=== PATIENT | female | born 1950 | race Caucasian/White ===

== ENCOUNTER 2018-04-18 10:02 | Inpatient (IN) | payer MEDICARE, OTHER ==
[~2018-04-18] VITALS: Ht 167.6 cm; Wt 79.3 kg
[2018-04-18] MEDS ORDERED: NOREPINEPHRINE 8 MG/250ML KIT 250 ML IV ONE (10:24)
[2018-04-18] MEDS ORDERED: ACETAMINOPHEN 650 mg PER 20 mL UD ONE (10:41)
[2018-04-18] MEDS: MIDAZOLAM DRIP 50 mg/50mL 50 ML IV SCH ×2 (10:41→17:08)
[2018-04-18] MEDS ORDERED: SUCCINYLCHOLINE CHLORIDE 20 MG/ML 10ML VIAL IV ONE (10:45)
[2018-04-18] MEDS ORDERED: VANCOMYCIN 1GM/250ML 250 ML IV ONE (10:45)
[2018-04-18] MEDS ORDERED: PIPERACILLIN-TAZOB 3.375GM 100 ML IV ONE (10:45)
[2018-04-18] MEDS: NOREPINEPHRINE 8 MG/250ML KIT 250 ML IV SCH (10:45)
[2018-04-18] MEDS ORDERED: ETOMIDATE (2MG/ML) 20ML VIAL IV ONE (10:45)
[2018-04-18] MEDS ORDERED: ACETAMINOPHEN 650 mg PER 20 mL UD PO ONE (11:00)
[2018-04-18 11:12] LABS: Basophils # (auto) 0.1 uL; Basophils % (auto) 0.4 % (0.0-2.0); Eosinophils # (auto) 0 uL; Eosinophils % (auto) 0.1 % (0.0-7.0); Hematocrit 50.1 % (36.0-46.0); Hemoglobin 15.7 g/dL (12.2-16.2); Lymphocytes # (auto) 0.9 uL; Mean Corpuscular Hemoglobin 29.8 pg (28.0-32.0); Mean Corpuscular Hgb Conc. 31.4 g/dL (32.0-36.0); Mean Corpuscular Volume 94.9 fL (80.0-100.0); Monocytes # (auto) 1.2 uL; Monocytes % (auto) 6.4 % (0.0-12.0); Neutrophils # (auto) 15.9 uL; Neutrophils % (auto) 88.1 % (37.0-80.0); Nucleated Red Blood Cells % 0.1 %; Platelet Count (auto) 171 10^3/uL (140-450); Red Blood Cells 5.29 10^6/uL (4.0-5.20); Red Cell Distribution Width 15.3 % (11.8-14.3); White Blood Cell 18.1 10^3/uL (4.4-10.8)
[2018-04-18 11:21] LABS: Albumin 2.8 g/dL (3.4-5.0); Calcium 8.4 mg/dL (8.5-10.1); Potassium 5.1 mmol/L (3.5-5.1)
[2018-04-18 11:24] LABS: Lactic Acid w/Reflex 2.6 mmol/L (0.4-2.0)
[2018-04-18 11:25] LABS: BUN/Creatinine Ratio 34.8; Bilirubin, Total 0.6 mg/dL (0.2-1.0); Total Protein 7.1 g/dL (6.4-8.2)
[2018-04-18 12:07] LABS: Urine Bacteria NONE SEEN /hpf (None Seen); Urine Blood Negative /uL (Negative); Urine Hyaline Cast FEW /lpf (0 - 2); Urine Specific Gravity 1.019 (1.001-1.035); Urine WBC 1 /hpf (0 - 5)
[2018-04-18] MEDS ORDERED: PANTOPRAZOLE 40 MG/10 ML VIAL IV ONE ×2 (14:00→14:30)
[2018-04-18] MEDS ORDERED: PROMETHAZINE HCL 25 MG/ML 1ML IV PRN (14:00)
[2018-04-18] MEDS ORDERED: ALBUTEROL SULF 2.5 MG/0.5ML(0.5%) NEB SOLN NEB PRN (14:00)
[2018-04-18] MEDS ORDERED: NITROGLYCERIN 0.4 MG SL TAB SL PRN (14:00)
[2018-04-18] MEDS ORDERED: CLINDAMYCIN 900MG IV 50 ML IV ONE (14:00)
[2018-04-18] MEDS ORDERED: DEXTROSE (50%) 50ML SYRG IV PRN (14:00)
[2018-04-18] MEDS ORDERED: SODIUM CHLORIDE 0.9% 2,000 ML IV ONE (14:00)
[2018-04-18] MEDS ORDERED: LEVOFLOXACIN 500MG 100 ML IV ONE (14:00)
[2018-04-18] MEDS ORDERED: SODIUM CHLORIDE 0.9% 1,000 ML IV SCH (14:00)
[2018-04-18] MEDS: CLINDAMYCIN 600MG IV 50 ML IV SCH ×2 (14:00→22:19)
[2018-04-18] MEDS ORDERED: OSELTAMIVIR 75MG/5ML ORAL SUSP GT ONE (14:00)
[2018-04-18] MEDS ORDERED: LORazepam 2MG/ML-1ML VIAL IV PRN (14:00)
[2018-04-18] MEDS ORDERED: LACTULOSE 20Gm/30ML SOLN PO PRN (14:00)
[2018-04-18] MEDS ORDERED: MORPHINE SULFATE 4 MG/ML SYR/VIAL IV PRN ×3 (14:00)
[2018-04-18] MEDS ORDERED: SOD CHL 0.45% 1,000 ML IV SCH (14:15)
[2018-04-18] MEDS ORDERED: ENOXAPARIN SOD 30 MG/0.3 ML SYRINGE SC ONE (14:30)
[2018-04-18] MEDS ORDERED: OSELTAMIVIR 75 MG CAP PO ONE (15:04)
[2018-04-18] MEDS: SOD CHL 0.45% 1,000 ML IV SCH (16:03)
[2018-04-18 16:06] LABS: CRP High Sensitivity 7.39 mg/dL (< 0.3)
[2018-04-18] MEDS: InsuLIN REG 1unit/0.01ml Soln (100units/ml) SC SCH ×2 (16:41→20:20)
[2018-04-18] MEDS: ACCU-CHEK COMFORT CURVE STRIP VI SCH ×2 (16:41→20:00)
[2018-04-18 18:00] VITALS: BP 91/66
[2018-04-18] MEDS: ALBUTEROL SULF 2.5 MG/0.5ML(0.5%) NEB SOLN NEB SCH (18:10)
[2018-04-18 19:51] LABS: BUN/Creatinine Ratio 34.8; Calcium 7.3 mg/dL (8.5-10.1); Potassium 4.6 mmol/L (3.5-5.1)
[2018-04-18 20:00] VITALS: BP 95/68
[2018-04-18 22:00] VITALS: BP 96/61
[2018-04-18] MEDS ORDERED: OSELTAMIVIR 30 MG CAP PO SCH (22:00)
[2018-04-18] MEDS ORDERED: OSELTAMIVIR 75MG/5ML ORAL SUSP GT SCH ×2 (22:00)
[2018-04-19] VITALS (13 sets, daily range): BP systolic 91–119; BP diastolic 53–77
[2018-04-19] MEDS: ACCU-CHEK COMFORT CURVE STRIP VI SCH ×6 (00:23→20:20)
[2018-04-19] MEDS: InsuLIN REG 1unit/0.01ml Soln (100units/ml) SC SCH ×6 (00:24→20:20)
[2018-04-19] MEDS: ALBUTEROL SULF 2.5 MG/0.5ML(0.5%) NEB SOLN NEB SCH ×4 (00:34→18:04)
[2018-04-19] MEDS: SOD CHL 0.45% 1,000 ML IV SCH ×2 (02:00→09:50)
[2018-04-19] MEDS: CLINDAMYCIN 600MG IV 50 ML IV SCH (06:00)
[2018-04-19 06:57] LABS: Basophils # (auto) 0 uL; Basophils % (auto) 0.2 % (0.0-2.0); Eosinophils # (auto) 0 uL; Eosinophils % (auto) 0.2 % (0.0-7.0); Hematocrit 39.7 % (36.0-46.0); Hemoglobin 12.6 g/dL (12.2-16.2); Lymphocytes % (auto) 8.4 % (10.0-50.0); Mean Corpuscular Hemoglobin 30.2 pg (28.0-32.0); Mean Corpuscular Hgb Conc. 31.8 g/dL (32.0-36.0); Mean Corpuscular Volume 94.9 fL (80.0-100.0); Monocytes # (auto) 0.7 uL; Monocytes % (auto) 6.1 % (0.0-12.0); Neutrophils # (auto) 10.3 uL; Neutrophils % (auto) 85.1 % (37.0-80.0); Nucleated Red Blood Cells % 0.1 %; Platelet Count (auto) 112 10^3/uL (140-450); Red Blood Cells 4.18 10^6/uL (4.0-5.20); Red Cell Distribution Width 14.7 % (11.8-14.3); White Blood Cell 12.1 10^3/uL (4.4-10.8)
[2018-04-19 07:05] LABS: Calcium 7.5 mg/dL (8.5-10.1); Potassium 4.6 mmol/L (3.5-5.1)
[2018-04-19 07:11] LABS: BUN/Creatinine Ratio 34.5; Bilirubin, Total 0.4 mg/dL (0.2-1.0); Total Protein 5.5 g/dL (6.4-8.2)
[2018-04-19] MEDS: MIDAZOLAM DRIP 50 mg/50mL 50 ML IV SCH ×3 (07:12→17:37)
[2018-04-19] MEDS: ENOXAPARIN SOD 30 MG/0.3 ML SYRINGE SC SCH (09:51)
[2018-04-19] MEDS: PANTOPRAZOLE 40 MG/10 ML VIAL IV SCH (09:51)
[2018-04-19] MEDS ORDERED: LEVOFLOXACIN 250MG 50 ML IV SCH (10:00)
[2018-04-19] MEDS: VANCOMYCIN 1GM/250ML 250 ML IV ONE ×2 (11:00→11:50)
[2018-04-19] MEDS ORDERED: VANCOMYCIN PER PHARMACY 0 MG IV SCH (11:45)
[2018-04-19] MEDS ORDERED: D5W 5% 1,000 ML IV SCH (11:45)
[2018-04-19] MEDS: PIPERACILLIN-TAZOB 2.25GM 50 ML IV SCH ×2 (12:34→17:37)
[2018-04-19 12:53] LABS: BUN/Creatinine Ratio 34.4; Calcium 7.3 mg/dL (8.5-10.1); Potassium 4.6 mmol/L (3.5-5.1)
[2018-04-19] MEDS: NOREPINEPHRINE 8 MG/250ML KIT 250 ML IV SCH (20:11)
[2018-04-19 20:29] LABS: BUN/Creatinine Ratio 31.1; Potassium 4.2 mmol/L (3.5-5.1)
[2018-04-20] VITALS (85 sets, daily range): BP systolic 97–129; BP diastolic 46–81
[2018-04-20] MEDS: ALBUTEROL SULF 2.5 MG/0.5ML(0.5%) NEB SOLN NEB SCH ×5 (00:06→23:46)
[2018-04-20] MEDS: ACCU-CHEK COMFORT CURVE STRIP VI SCH ×6 (00:18→20:00)
[2018-04-20] MEDS: InsuLIN REG 1unit/0.01ml Soln (100units/ml) SC SCH ×6 (00:18→20:00)
[2018-04-20] MEDS: PIPERACILLIN-TAZOB 2.25GM 50 ML IV SCH ×4 (00:19→18:49)
[2018-04-20 05:38] LABS: Basophils # (auto) 0 uL; Basophils % (auto) 0.1 % (0.0-2.0); Eosinophils # (auto) 0 uL; Eosinophils % (auto) 0.2 % (0.0-7.0); Hematocrit 34.1 % (36.0-46.0); Lymphocytes # (auto) 1.2 uL; Mean Corpuscular Hemoglobin 30.1 pg (28.0-32.0); Mean Corpuscular Hgb Conc. 32.1 g/dL (32.0-36.0); Mean Corpuscular Volume 93.8 fL (80.0-100.0); Monocytes # (auto) 0.7 uL; Monocytes % (auto) 6.3 % (0.0-12.0); Neutrophils # (auto) 9.7 uL; Neutrophils % (auto) 83.4 % (37.0-80.0); Platelet Count (auto) 105 10^3/uL (140-450); Red Blood Cells 3.63 10^6/uL (4.0-5.20); Red Cell Distribution Width 14.3 % (11.8-14.3); White Blood Cell 11.6 10^3/uL (4.4-10.8)
[2018-04-20 05:46] LABS: BUN/Creatinine Ratio 28.7; Calcium 6.8 mg/dL (8.5-10.1); Magnesium 2.9 mg/dL (1.6-2.6); Potassium 4.1 mmol/L (3.5-5.1)
[2018-04-20 06:07] LABS: Uric Acid 4.9 mg/dL (2.6-6.0)
--- NOTE | 2018-04-20 07:30 | NUR ---
REPORT REPORT RECEIVED FROM OMERO RNEVANGELINA. PT RESTING IN BED, WITH EYES CLOSED, ON THE VENTILATOR AND SEDATED ON VERSED. VSS. CONTINUE TO MONITOR.
--- NOTE | 2018-04-20 07:55 | NUR ---
ASSESSMENT PT IN BED WITH EYES CLOSED. WITHDRAWS TO PAINFUL STIMULI. PUPILS 3 AND BRISK. NO SPONTANEOUS MOVEMENT NOTED. SEDTED ON VERSED AT 10 MG/HR. ON THE VENTILATOR WITH 8 FR ETT/24 AT THE LIP, TV 500, AC 16, 35% FIO2 AND PEEP OF 5. LUNGS CLEAR ANTERIOR AND LATERAL, AND WITH EXPIRATORY CRACKLES POSTERIOR BILATERAL BASES. 02 SAT OF 100%. TELE SR 78, NO ECTOPY. PALPABLE PULSES TO ALL EXTREMITIES. MILD EDEMA NOTED TO BOTH ANKLES. APPLIED SCDS TO BLE. OGT WITH + PLACEMENT AND NO RESIDUAL NOTED. ADMINISTERED ORDERED 400ML FREE WATER PER MD ORDER. ABD SOFT WITH ACTIVE BOWEL SOUNDS. INCONTINENT OF MODERATE AMOUNT OF SOFT FORMED BROWN BM. PERICARE GIVEN AND CAIR PAD CHANGED. Z GUARD CREAM APPLIED. OPTIFOAM IN PLACE TO SACRUM, SKIN UNDER IS CLEAR. NOTED WITH BLANCHABLE RED AREA TO LEFT HIP AND BLANCHABLE RED TO BOTH HEELS. HEELS OFFLOADED ON PILLOWS. GARCIA CATHETER DRAINING CLEAR YELLOW URINE. TURNED TO HER LEFT SIDE. RAILS UP AND BED IN LOW POSITION FOR PT SAFETY. CONTINUE TO MONITOR.
--- NOTE | 2018-04-20 07:55 | NUR ---
PT TEACHING PT UNABLE TO BENEFIT FROM PT TEACHING DUE TO CONDITION AND SEDATED WHILE ON THE VENTILATOR. Addendum: 04/20/18 at 0937 by Claudia Oscar RN Amended: Links added.
[2018-04-20] MEDS: ENOXAPARIN SOD 30 MG/0.3 ML SYRINGE SC SCH (09:54)
[2018-04-20] MEDS: PANTOPRAZOLE 40 MG/10 ML VIAL IV SCH (09:54)
[2018-04-20] MEDS: MIDAZOLAM DRIP 50 mg/50mL 50 ML IV SCH (09:54)
[2018-04-20] MEDS ORDERED: VANCOMYCIN 1GM/250ML 250 ML IV ONE (10:00)
[2018-04-20] MEDS: NOREPINEPHRINE 8 MG/250ML KIT 250 ML IV SCH (10:01)
--- NOTE | 2018-04-20 10:11 | NUR ---
RADIOLOGIST RECEIVED A CALL FROM DR MELGOZA, RADIOLOGIST, THAT ETT NEEDS TO BE RETRACTED BY 2.5 CM. PAGED AND SPOKE WITH RT KALYAN, AND MADE HIMAWARE..
--- NOTE | 2018-04-20 10:32 | NUR ---
MD VISIT PT SEEN BY DR SIMS. MADE AWARE OF PT'S CURRENT CONDITION, NO FAMILY IN YET AND RADIOLOGIST RECOMMENDATION TO RETRACT ETT 2.5CM. SHE WILL ORDER FOR CPAP TRIAL FOR TOMORROW .
[2018-04-20] MEDS: SOD CHL 0.45% 1,000 ML IV SCH (12:31)
[2018-04-20] MEDS: FREE WATER GT SCH (18:00)
--- NOTE | 2018-04-20 18:00 | NUR ---
DID NOT ADMINISTER 1800 DOSE OF 400ML FREE WATER I GAVE FIRST DOSE AT 0900 AND SECOND DOSE AT 1500. WILL ADMINISTER NEXT DOSE AT 0000. TURNED FOR COMFORT AND NO DISTRESS NOTED.
--- NOTE | 2018-04-20 18:54 | NUR ---
RESPIRATORY PER ORDER FROM DR Evan CABRERA, PT TO NOT HAVE 0400 ABG, START ON SIMV AT 0600, ABG AT 0800, TITRATE OFF SEDATION BY 1000 AND IF TOLERATED WELL BY PT, CPAP AT 1200 WITH WEANING PARAMETERS AND ABG TO FOLLOW.
--- NOTE | 2018-04-20 19:15 | NUR ---
REPORT GIVEN TO EVANGELINA JAMIL RN.
[2018-04-20] MEDS ORDERED: AML5T PO (21:08)
[2018-04-20] MEDS ORDERED: MET50T PO (21:10)
[2018-04-20] MEDS ORDERED: TRAZ-220 PO (21:13)
[2018-04-20] MEDS ORDERED: LEVO25TA6 PO (21:17)
[2018-04-20] MEDS ORDERED: ACET5SOL5 PO (21:19)
[2018-04-20] MEDS ORDERED: GLIP-115 PO (21:21)
[2018-04-20] MEDS ORDERED: BENZ0.5T14 PO (21:25)
[2018-04-20] MEDS ORDERED: BEN2I PO (21:25)
[2018-04-21] VITALS (96 sets, daily range): BP systolic 93–142; BP diastolic 44–90
[2018-04-21 03:53] LABS: Basophils # (auto) 0 uL; Basophils % (auto) 0.1 % (0.0-2.0); Eosinophils # (auto) 0.1 uL; Eosinophils % (auto) 0.6 % (0.0-7.0); Hematocrit 31.7 % (36.0-46.0); Hemoglobin 10.4 g/dL (12.2-16.2); Lymphocytes # (auto) 1.3 uL; Lymphocytes % (auto) 12.3 % (10.0-50.0); Mean Corpuscular Hemoglobin 30.5 pg (28.0-32.0); Mean Corpuscular Volume 92.5 fL (80.0-100.0); Monocytes # (auto) 0.6 uL; Monocytes % (auto) 5.8 % (0.0-12.0); Neutrophils # (auto) 8.3 uL; Neutrophils % (auto) 81.2 % (37.0-80.0); Platelet Count (auto) 102 10^3/uL (140-450); Red Blood Cells 3.42 10^6/uL (4.0-5.20); Red Cell Distribution Width 14.3 % (11.8-14.3); White Blood Cell 10.2 10^3/uL (4.4-10.8)
[2018-04-21] MEDS: ACCU-CHEK COMFORT CURVE STRIP VI SCH ×6 (04:00→20:20)
[2018-04-21] MEDS: InsuLIN REG 1unit/0.01ml Soln (100units/ml) SC SCH ×6 (04:00→20:00)
[2018-04-21 05:26] LABS: Calcium 7.1 mg/dL (8.5-10.1); Potassium 4.1 mmol/L (3.5-5.1)
[2018-04-21] MEDS: ALBUTEROL SULF 2.5 MG/0.5ML(0.5%) NEB SOLN NEB SCH ×3 (05:33→19:01)
[2018-04-21] MEDS: FREE WATER GT SCH ×4 (05:57→18:12)
[2018-04-21] MEDS: PIPERACILLIN-TAZOB 2.25GM 50 ML IV SCH ×4 (05:57→18:12)
--- NOTE | 2018-04-21 06:43 | NUR ---
Respiratory note: PT PLACED ON SIMV 12, 500, PEEP OF 5, PRESSURE SUPPORT OF 8, 30% FIO2. HR 69, RR 12, SPO2 100%, BP 118/59. PATIENT SEEMS TO BE TOLERATING WELL. ALIRIO RICKS.
--- NOTE | 2018-04-21 07:15 | NUR ---
REPORT RECEIVED FROM OMERO RNEVANGELINA.
[2018-04-21] MEDS: SOD CHL 0.45% 1,000 ML IV SCH ×2 (07:45→13:09)
--- NOTE | 2018-04-21 07:54 | NUR ---
ASSESSMENT PT RESTING WITH EYES CLOSED SLIGHT COUGH, NO GAG, AND NO WITHDRAWL TO PAINFUL STIMULI. SEDATED ON VERSED 2 MG/HR WHILE ON THE VENTILATOR. 8 FR ETT/22 AT THE LIP, SIMV RATE OD 12, TV 500, 30% , PEEP OFF 5 AND PRESSURE SUPPORT OF 8. LUNGS CLEAR THROUGHOUT AND A FEW INSPIRATORY CRACKLES AT THE BASES. O2 SAT OF 100%. TELE SR 70. SCDS TO BLE. PALPABLE PULSES TO ALL EXTREMITIES. ABD SOFT WITH HYPOACTIVE BOWEL SOUNDS. UNKNOWN LAST BM . GARCIA CATHETER DRAINING CLEAR YELLOW URINE. LEFT HIP, BLANCHABLE LIGHT RED. SACRUM CLEAR. 3 SMALL SCABS NOTED AT BASE OF RIGHT TOE #5. TURNED FOR COMFORT TO HER LEFT SIDE. RAILS UP AND BED IN LOW POSITION FOR PT SAFETY.
--- NOTE | 2018-04-21 09:10 | NUR ---
RESPIRATORY/ABG ABG DRAWN AFTER 2 HOURS ON SIMV. NO SIGNIFICANT CHANGE FROM PREVIOUS ABG ON AC MODE. PER DR Evan CABRERA'S ORDER, TO TURN OFF REMAINING SEDATION AT 1000.
--- NOTE | 2018-04-21 10:00 | NUR ---
LAST OF VERSED TURNED OFF IN PREP FOR CPAP.
[2018-04-21] MEDS: PANTOPRAZOLE 40 MG/10 ML VIAL IV SCH (10:05)
[2018-04-21] MEDS: VANCOMYCIN 1GM/250ML 250 ML IV SCH (10:05)
[2018-04-21] MEDS: ENOXAPARIN SOD 40 MG/0.4 ML SYRINGE SC SCH (10:05)
[2018-04-21] MEDS: MIDAZOLAM DRIP 50 mg/50mL 50 ML IV SCH (10:32)
[2018-04-21] MEDS ORDERED: FUROSEMIDE 20 MG/2 ML VIAL IV ONE (11:00)
--- NOTE | 2018-04-21 11:22 | NUR ---
NUTRITION ASSESSMENT NOTES Please refer to link notes of nutrition screen form filed under the intervention section of the plan of care for further details. Est. Needs: 1550 kcal to 1900 kcal (20-25 kcal/kgBW), 61 gms to 77 gms pro (0.8-1.0 gms/kgBW). Will continue to monitor pertinent labs and reassess nutrient need prn Thank you. Addendum: 04/21/18 at [address] Amended: Links added.
--- NOTE | 2018-04-21 12:05 | NUR ---
MD DR Evan CABRERA HERE AND MADE AWARE OF ABG RESULTS WITH PT ON SIMV AND THAT SEDATION OFF SINCE 1000 BUT PT REMAINS ASLEEP. DOES COUGH NOW WHEN SUCTIONED BUT NO SPONTANEOUS MOVEMENT OR EYE OPENING NOTED. WILL HOLD OFF ON CPAP UNTIL PT AWAKE AND ABLE TO FOLLOW SIMPLE COMMANDS.
--- NOTE | 2018-04-21 14:30 | NUR ---
PT STILL NOT WAKING UP.
--- NOTE | 2018-04-21 17:27 | NUR ---
[facility] [phone] [id number] [place] [address] PCP: DR RILEY Addendum: 04/21/18 at 1737 by Claudia Oscar RN ATTEMPTED TO CONTACT [facility] BLEDSOE AND [facility] AT THE ABOVE NUMBER TO GET BACKGROUND INFO AND NEXT OF KIN CONTACT. NO ANSWER AND LEFT A MESSAGE REQUESTING THAT THEY CALL BACK.
--- NOTE | 2018-04-21 18:00 | NUR ---
REPOSITIONED PT ONTO HER BACK. OGT IN PLACE WITH NO RESIDUAL AND ADMINISTERED 400 ML FREE WATER PER MD ORDER. CONTINUE TO MONITOR.
--- NOTE | 2018-04-21 19:10 | NUR ---
INFO FROM [employer] SPOKE WITH MOR FROM [facility] [employer]. HE STATED THAT PT CAME TO THEIR FACILITY FROM [facility] ON 04/11 AND THAT SHE HAS NO EMERGENCY CONTACT INFO AND WAS NON VERBAL. PER THE [facility], SHE HAD RECENTLY BEEN LIVING WITH A ROOM MATE BUT NO CONTACT INFO WAS GIVEN.
--- NOTE | 2018-04-21 19:59 | NUR ---
REPORT GIVEN TO CARLIN JAMIL RN.
[2018-04-21] MEDS: Glucerna 1.2 Cal 1Liter BOTTLE GT SCH (21:30)
[2018-04-22] VITALS (91 sets, daily range): BP systolic 94–131; BP diastolic 45–63
[2018-04-22] MEDS: PIPERACILLIN-TAZOB 2.25GM 50 ML IV SCH ×4 (00:17→18:28)
[2018-04-22] MEDS: FREE WATER GT SCH ×4 (00:18→18:27)
[2018-04-22] MEDS: InsuLIN REG 1unit/0.01ml Soln (100units/ml) SC SCH ×6 (00:21→20:00)
[2018-04-22] MEDS: ACCU-CHEK COMFORT CURVE STRIP VI SCH ×6 (00:21→20:00)
[2018-04-22] MEDS: ALBUTEROL SULF 2.5 MG/0.5ML(0.5%) NEB SOLN NEB SCH ×4 (00:25→18:59)
[2018-04-22 03:50] LABS: Basophils # (auto) 0 uL; Basophils % (auto) 0.1 % (0.0-2.0); Eosinophils # (auto) 0.1 uL; Eosinophils % (auto) 1.3 % (0.0-7.0); Hematocrit 31.1 % (36.0-46.0); Hemoglobin 10.2 g/dL (12.2-16.2); Lymphocytes # (auto) 0.9 uL; Lymphocytes % (auto) 9.5 % (10.0-50.0); Mean Corpuscular Hemoglobin 30.1 pg (28.0-32.0); Mean Corpuscular Hgb Conc. 32.8 g/dL (32.0-36.0); Mean Corpuscular Volume 91.7 fL (80.0-100.0); Monocytes # (auto) 0.6 uL; Monocytes % (auto) 5.9 % (0.0-12.0); Neutrophils # (auto) 7.9 uL; Neutrophils % (auto) 83.2 % (37.0-80.0); Platelet Count (auto) 104 10^3/uL (140-450); Red Blood Cells 3.39 10^6/uL (4.0-5.20); Red Cell Distribution Width 13.8 % (11.8-14.3); White Blood Cell 9.5 10^3/uL (4.4-10.8)
[2018-04-22 04:11] LABS: Albumin 1.5 g/dL (3.4-5.0); BUN/Creatinine Ratio 22.3
[2018-04-22 04:14] LABS: Bilirubin, Total 0.6 mg/dL (0.2-1.0); Total Protein 5.3 g/dL (6.4-8.2)
--- NOTE | 2018-04-22 05:15 | NUR ---
Patient bathe/linen change Patient given complete bath. Skin integrity assessed for any changes. Linens changed. Patient repositioned for comfort.
[2018-04-22] MEDS: MIDAZOLAM DRIP 50 mg/50mL 50 ML IV SCH (10:32)
[2018-04-22] MEDS: VANCOMYCIN 1GM/250ML 250 ML IV SCH (10:50)
[2018-04-22] MEDS: ENOXAPARIN SOD 40 MG/0.4 ML SYRINGE SC SCH (10:51)
[2018-04-22] MEDS: PANTOPRAZOLE 40 MG/10 ML VIAL IV SCH (10:51)
[2018-04-22] MEDS ORDERED: FUROSEMIDE 20 MG/2 ML VIAL IV ONE (11:15)
[2018-04-22] MEDS ORDERED: LEVOFLOXACIN 750MG 150 ML IV ONE (11:45)
[2018-04-22] MEDS: SOD CHL 0.45% 1,000 ML IV SCH (14:43)
--- NOTE | 2018-04-22 19:30 | NUR ---
OPEN Report received from day shift RN. Received pt on mechanical ventilator all sedation turned off. Pt does not respond to stimuli. does not open eyes spontaneously. Pupils 3 brisk bilaterally. Right IJ TLC asymptomatic and patent. Sinus rhythm on bedside monitor in the 70's. all pulses palpable. OGT placement verified. Assessment complete see interventions. Optifoam to sacrum for preventative measures. Pt turned and repositioned for comfort. Car catheter draining to gravity yellow urine with sediment. Pt in full view of RN. All alarms on and audible.
--- NOTE | 2018-04-22 19:30 | NUR ---
Respiratory note: RECEIVED PT FROM DAY SHIFT RT ON SETTINGS PASSED ON REPORT. PT VENT(V14) ALARMS VERIFIED AND AUDIBLE, VENT PLUGGED IN TO RED OUTLET, AMBU BAG BEDSIDE.PT INTUBATED WITH 8.0 ETT SECURED AT 22CM LIP LINE MARKER WITH DIDI. PT ETT MOVED TO THE LEFT CUFF PRESSURE CHECKED AT [id number]. PT SKIN IS WARM AND DRY TO THE TOUCH WITH NO EDEMA NOTED ON EXTREMITIES. PT BS COURSE BILATERALLY. PT WAS INLINE SUCTIONED PRODUCING MODERATE THICK YELLOW SECRETIONS. PT RECEIVED MED iTaggit TX AT 1859 PT TOLERATED TX WELL. PT REMAINS STABLE AT THIS TIME WILL CONTINUE TO MONITOR PT ORDERED.PT VENT SETTINGS CHANGED PER DR. CABRERA TO AC//30% TRIED TO CONTACT DR. CABRERA FOR ORDER CLARIFICATION AT AROUND 1915 NO ANSWER UNABLE TO LEAVE MESSAGE ALIRIO ROBERT NOTIFIED,
--- NOTE | 2018-04-22 21:10 | NUR ---
Tube Feeding TF glucerna, turned on at this time at 20cc's.
[2018-04-23] VITALS (94 sets, daily range): BP systolic 108–165; BP diastolic 45–115
--- NOTE | 2018-04-23 | NUR ---
Residuals Residuals at 50 mls. TF off at this time.
[2018-04-23] MEDS: ACCU-CHEK COMFORT CURVE STRIP VI SCH ×6 (00:26→17:50)
[2018-04-23] MEDS: PIPERACILLIN-TAZOB 2.25GM 50 ML IV SCH ×4 (00:32→18:12)
[2018-04-23] MEDS: FREE WATER GT SCH ×4 (00:32→17:49)
[2018-04-23] MEDS: ALBUTEROL SULF 2.5 MG/0.5ML(0.5%) NEB SOLN NEB SCH ×4 (00:39→18:38)
[2018-04-23 04:00] LABS: Basophils # (auto) 0 uL; Basophils % (auto) 0.1 % (0.0-2.0); Eosinophils # (auto) 0.2 uL; Eosinophils % (auto) 1.8 % (0.0-7.0); Hematocrit 30.7 % (36.0-46.0); Hemoglobin 10.2 g/dL (12.2-16.2); Lymphocytes # (auto) 0.9 uL; Lymphocytes % (auto) 10.9 % (10.0-50.0); Mean Corpuscular Hemoglobin 30.6 pg (28.0-32.0); Mean Corpuscular Hgb Conc. 33.1 g/dL (32.0-36.0); Mean Corpuscular Volume 92.5 fL (80.0-100.0); Monocytes # (auto) 0.6 uL; Neutrophils # (auto) 6.9 uL; Neutrophils % (auto) 80.2 % (37.0-80.0); Platelet Count (auto) 129 10^3/uL (140-450); Red Blood Cells 3.32 10^6/uL (4.0-5.20); White Blood Cell 8.6 10^3/uL (4.4-10.8)
[2018-04-23] MEDS: InsuLIN REG 1unit/0.01ml Soln (100units/ml) SC SCH ×6 (04:00→17:50)
[2018-04-23 04:21] LABS: Calcium 7.6 mg/dL (8.5-10.1); Potassium 3.8 mmol/L (3.5-5.1)
[2018-04-23 04:24] LABS: Albumin 1.4 g/dL (3.4-5.0); BUN/Creatinine Ratio 22.5; Magnesium 2.4 mg/dL (1.6-2.6)
[2018-04-23 04:27] LABS: Bilirubin, Total 0.6 mg/dL (0.2-1.0); Total Protein 5.4 g/dL (6.4-8.2)
--- NOTE | 2018-04-23 05:00 | NUR ---
Patient bathe/linen change Patient given complete CHG bath. Skin integrity assessed for any changes. Linens changed. Patient repositioned for comfort.
--- NOTE | 2018-04-23 05:15 | NUR ---
Pt had moderate liquid brown BM
[2018-04-23] MEDS: SOD CHL 0.45% 1,000 ML IV SCH (06:46)
--- NOTE | 2018-04-23 08:15 | NUR ---
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 PATIENT PLACED ON ISOLATION PER HOSPITAL PROTOCOL. CALL OUT TO DR. ESPAÑA.
--- NOTE | 2018-04-23 08:46 | NUR ---
SEDATION TURNED OFF ON 04/21/18 AND PATIENT IS STILL NOT WAKING UP AT THIS TIME.
[2018-04-23] MEDS: PANTOPRAZOLE 40 MG/10 ML VIAL IV SCH (10:54)
[2018-04-23] MEDS: ENOXAPARIN SOD 40 MG/0.4 ML SYRINGE SC SCH (10:55)
--- NOTE | 2018-04-23 11:30 | NUR ---
Nutrition Follow-up Notes Wt.: 76.7 kg Pt was intubated off sedation per RN with no family by bedside. per RN feeds turned off due to high residual. pt was on EN support with Glucerna @ 20 ml/hr providing 576 kcals and 28 gm proteins. Est. Needs: 1550 kcal to 1900 kcal (20-25 kcal/kgBW), 61 gms to 77 gms pro (0.8-1.0 gms/kgBW). Will continue to monitor pertinent labs and reassess nutrient need prn Labs: BUN 29 H, CREAT 1.29 H, CA 7.6 L, ALB 1.4 L, GLU 147 H Skin: Taz scale 12, high risk, redness on hip per RN doc GI: Pt had 2 BM today per medical manager. PES: Increased nutrient needs r/t current chronic medical condition aeb intubated, sedated, NPO. Altered nutrition related lab values r/t current/chronic medical condition aeb hyperglycemia, hyponatremia, hyperchloremia, elev. renal labs, HbA1c, hypocalcemia Will continue to monitor NPO status, skin status, pertinent labs and weight trend. F/u in 2-3 days. Rec.: 1.) Resume EN support with Glucerna 1.2 J Carlos @ 60 ml/hr goal rate as tolerated. 3.) Advance gradually to oral diet when medically appropriate. 4.) Refer to CDE/RD for further nutrition education and weight monitoring upon discharged. 5.) Continue current plan of care.
[2018-04-23] MEDS ORDERED: VANCOMYCIN 1GM/250ML 250 ML IV ONE (16:30)
[2018-04-23] MEDS ORDERED: FUROSEMIDE 20 MG/2 ML VIAL IV ONE (16:30)
[2018-04-23] MEDS: SODIUM CHLORIDE 0.9% 1,000 ML IV SCH (16:35)
--- NOTE | 2018-04-23 19:30 | NUR ---
REPORT RECEIVED FROM DAY SHIFT RN. PT STILL UNRESPONSIVE, SEDATION TURNED OFF ON 04/21. PT ON MECHANICAL VENTILATOR WITH SIMV SETTINGS RATE OF 10, VT 500, PEEP OF 6 AND FIO2 AT 30%.
--- NOTE | 2018-04-23 20:30 | NUR ---
UPON ASSESSMENT, BLISTER LIKE RASH OBSERVED OVER PT'S ABDOMEN, LEFT AND RIGHT FLANK, AND BACK. HOSPITALIST PAGED AT THIS TIME.
[2018-04-23] MEDS ORDERED: diphenhdrAMINE HCL 50 MG/1 ML VL IV ONE (21:45)
[2018-04-23] MEDS ORDERED: methylPREDNISolone SOD SUCC 125 MG/2 ML VL IV ONE (21:45)
--- NOTE | 2018-04-23 21:46 | NUR ---
HOSPITALIST RETURNED CALL. MENTIONED TO HOSPITALIST SHE RECEIVED LEVAQUIN ON DAY SHIFT, WHICH IS A NEW ANTIBIOTIC ORDERED. POSSIBLE ALLERGIC REACTION. ORDERS RECEIVED FOR 125 MG SOLUMEDROL IV AND 25 MG BENADRYL IV. WILL CARRY OUT ORDERS.
[2018-04-24] VITALS (85 sets, daily range): BP systolic 98–175; BP diastolic 55–90
--- NOTE | 2018-04-24 | NUR ---
TF residual at 20 mls.
[2018-04-24] MEDS: ALBUTEROL SULF 2.5 MG/0.5ML(0.5%) NEB SOLN NEB SCH ×4 (00:45→18:23)
[2018-04-24] MEDS: InsuLIN REG 1unit/0.01ml Soln (100units/ml) SC SCH ×4 (00:48→17:43)
[2018-04-24] MEDS: ACCU-CHEK COMFORT CURVE STRIP VI SCH ×4 (00:48→17:43)
[2018-04-24] MEDS: PIPERACILLIN-TAZOB 2.25GM 50 ML IV SCH ×2 (00:48→05:55)
[2018-04-24 04:07] LABS: Albumin 1.5 g/dL (3.4-5.0); Calcium 8.1 mg/dL (8.5-10.1); Potassium 4.1 mmol/L (3.5-5.1)
[2018-04-24 04:11] LABS: BUN/Creatinine Ratio 25.7; Bilirubin, Total 0.5 mg/dL (0.2-1.0); Total Protein 5.8 g/dL (6.4-8.2)
--- NOTE | 2018-04-24 04:45 | NUR ---
Patient bathe/linen change Patient given complete bath. Moderate sized liquid brown BM. Linens changed. Patient repositioned for comfort.
[2018-04-24] MEDS: FREE WATER GT SCH ×4 (06:22→17:43)
--- NOTE | 2018-04-24 07:00 | NUR ---
Opening Shift Note: Report received from ALIRIO Lanza. Assumed care of patient, opens eyes -does not respond to commands. Off sedation since 04/21/18. Plan for a CT head today. No S/S of distress/SOB or pain. Will continue to monitor for changes Q1hr and PRN. See Px assessment.
--- NOTE | 2018-04-24 07:15 | NUR ---
Patient seen by Dr. Taylor-CT head ordered.
[2018-04-24] MEDS: Glucerna 1.2 Cal 1Liter BOTTLE GT SCH (07:23)
--- NOTE | 2018-04-24 08:00 | NUR ---
Patient having diarrhea loose brown stools- rectal tube inserted.
[2018-04-24] MEDS: SODIUM CHLORIDE 0.9% 1,000 ML IV SCH (08:55)
--- NOTE | 2018-04-24 09:15 | NUR ---
Dr. Chamberlain at bedside- plan to cpap if patient if patient able.
--- NOTE | 2018-04-24 09:30 | NUR ---
Respiratory note: PLACED PATIENT ON TRANSPORT VENTILATOR WITH SETTINGS OF SIMV RR10/VT 500/ +6/PSV 10/ FIO2 30%. ALARMS ARE FUNCTIONING AND AUDIBLE. PATIENT WAS CONNECTED TO PULSE OXIMETER. PATIENT WAS TRANSPORTED TO CT WITHOUT ANY ISSUES. AMBU BAG WAS CONNECTED TO O2 SOURCE.
--- NOTE | 2018-04-24 09:45 | NUR ---
Patient transported to Radiology for CT head- came back VS's WNL.
--- NOTE | 2018-04-24 09:45 | NUR ---
Respiratory note: PATIENT WAS BROUGHT BACK FROM CT AND PLACED ON VENTILATOR V 14 WITHOUT ANY INCIDENTS. PATIENT OCCURS TO BE ON PREVIOUS VENTILATOR SETTINGS OF SIMV 10/ VT 500/ +6/ PSV 10/ 30%. PATIENT IS TOLERATING VENTILATOR SETTINGS WELL. ALIRIO COLEMAN AT BEDSIDE. WILL CONTINUE TO MONITOR PATIENT.
[2018-04-24] MEDS: ENOXAPARIN SOD 40 MG/0.4 ML SYRINGE SC SCH (10:00)
[2018-04-24] MEDS: PANTOPRAZOLE 40 MG/10 ML VIAL IV SCH (10:00)
[2018-04-24] MEDS ORDERED: LEVOFLOXACIN 750MG 150 ML IV SCH (10:00)
[2018-04-24] MEDS ORDERED: PIPERACILLIN-TAZOB 3.375GM 100 ML IV SCH (12:00)
--- NOTE | 2018-04-24 12:10 | NUR ---
WOUND CARE NOTE: IN TO SEE PATIENT AT THIS TIME PER PROTOCOL. PATIENT NOTED TO HAVE LOW AMANDA SCORE OF 12. ADDED PATIENT TO SKIN INTEGRITY MONITORING. PATIENT ADMITTED WITH DIAGNOSIS OF PNA, RESPIRATORY AND RENAL FAILURE. PATIENT REMAINS INTUBATED, SEDATED. SHE IS NOTED TO HAVE MILD INTERTRIGINOUS RASH TO PERINEUM/PERIANAL SKIN. CAVILON NO STING BARRIER FILM APPLIED BY BEDSIDE NURSE. OPTIFOAM GENTLE SACRAL DRESSING APPLIED TO UPPER MEDIAL SACRUM PREVENTATIVE. RECTAL TUBE HAS BEEN APPLIED PER MD ORDER BY BEDSIDE NURSE. PATIENT REPOSITIONED ONTO RIGHT SIDE, REDISTRIBUTING PRESSURE POINTS USING PILLOWS/WEDGES. RECOMMEND: FREQUENT TURN SCHEDULE Q 2 HOURS, PRN CONDITION PERMITS, WITH PRESSURE REDISTRIBUTION USING PILLOWS/WEDGES, BID/PRN APPLICATION WITH CAVILON NO STING BARRIER FILM TO PERINEAL/PERIANAL SKIN, APPLICATION OF OPTIFOAM GENTLE SACRAL DRESSING PREVENTATIVE, SKIN/WOUND CARE PLAN, DIETARY CONSULT FOR LOW AMANDA SCORE OF 12, CONTINUED MONITORING BY WOUND CARE TEAM.
--- NOTE | 2018-04-24 13:05 | NUR ---
Respiratory note: CPAP TRIAL INITIATED. VENTILATOR SETTINGS ARE CPAP +6/PSV 10/30%. PATIENT IS TOLERATING CPAP TRIAL AND IS MAINTAINING SPO2 >92%. RN JARED IS AT BEDSIDE ALONG WITH MYSELF. PATIENT IS ABLE TO OPEN EYES, BUT IS UNABLE TO SQUEEZE HANDS WHEN DIRECTED TO. WILL CONTINUE TO MONITOR PATIENT.
--- NOTE | 2018-04-24 15:15 | NUR ---
Dr. Jasso at bedside- aware of CPAP trial -will check med req.
[2018-04-24] MEDS ORDERED: VANCOMYCIN PER PHARMACY 0 MG IV SCH (15:30)
--- NOTE | 2018-04-24 16:00 | NUR ---
1305pm CPAP trial initation- tolerated well. ABG results obtained by RT. Dr. Bulmaro Kapoor notified and T-piece ordered.
--- NOTE | 2018-04-24 16:05 | NUR ---
Patient on T-piece, 8 liters at 35%.
--- NOTE | 2018-04-24 16:05 | NUR ---
Respiratory note: PLACED PATIENT ON T-PIECE AT 8L AND 35% FIO2. PATIENT IS MAINTAINING SPO2 ABOVE 92%. HR 91, RR 25, SP02 99%, AND BP IS 146/71. PER DR. Trevor CABRERA PLACE PATIENT BACK ON SIMV IF PATIENT STOPS TOLERATING T-PIECE. ALIRIO COLEMAN AWARE AND NOTIFIED.
[2018-04-24] MEDS ORDERED: VANCOMYCIN 1,500 MG in D5W 5% 250 ML IV SCH (17:00)
--- NOTE | 2018-04-24 18:23 | NUR ---
Respiratory note: AT BEDSIDE FOR MED NEB TX. PT CURRENTLY ON T-PIECE TRIAL. MED NEB TX GIVEN INLINE WITHOUT ADVERSE REACTION NOTED. BS ARE FINE COURSE T/O SXD SMALL BEAL. PT HAS 8.0 ETT SECURED AT 22CM AT THE LIP VIA ANCHOR-FAST. VENT V14 ON STANDBY AT BEDSIDE IN CASE PT NOT TOLERATING T-PIECE. RT NAME AND PAGER ASSIGNMENT WRITTEN ON PTS ROOM BOARD.
--- NOTE | 2018-04-24 18:52 | NUR ---
Dr. Fuentes to see patient in the morning.
--- NOTE | 2018-04-24 19:04 | NUR ---
Endorsed care to ALIRIO Spencer.
[2018-04-24] MEDS: PIPERACILLIN-TAZOB 3.375GM 100 ML IV SCH (20:00)
--- NOTE | 2018-04-24 20:04 | NUR ---
Respiratory note: REASSESSED PT AT THIS TIME. PT REMAINS ON T-PIECE. NO S/S OF RESP DISTRESS NOTED. BS ARE FINE COURSE IN BILATERAL BASES. SXD FOR SMALL BEAL/ BLOOD TINGE. HR 89 POX 98% ON 8LPM COOL AEROSOL SET TO DELIVER ABOUT 35% FIO2. BP IS 165/83. WILL CONTINUE TO MONITOR.
--- NOTE | 2018-04-24 22:21 | NUR ---
Respiratory note: AT BEDSIDE PT APPEARS COMFORTABLE. PT OPENS EYES WHEN STIMULATED, SXD FOR SMALL THICK BEAL, GAG REFLEX INTACT, VISUALLY SEEN WHEN SXD VIA ETT. ASKED PT TO SQUEEZE MY HAND PT NOT FOLLOWING COMMANDS AT THIS TIME. SXD
[2018-04-25] VITALS (80 sets, daily range): BP systolic 127–168; BP diastolic 60–85
[2018-04-25] MEDS: ALBUTEROL SULF 2.5 MG/0.5ML(0.5%) NEB SOLN NEB SCH ×4 (00:17→18:23)
--- NOTE | 2018-04-25 00:17 | NUR ---
Respiratory note: AT BEDSIDE FOR MED NEB TX. TX GIVEN INLINE. PT HAS INCREASED HAND MOVEMENT WITH STIMULATION FROM LAST CHECK. NO ADVERSE REACTION NOTED WILL CONTINUE TO MONITOR.
[2018-04-25] MEDS: SODIUM CHLORIDE 0.9% 1,000 ML IV SCH (01:35)
[2018-04-25] MEDS: PIPERACILLIN-TAZOB 3.375GM 100 ML IV SCH ×4 (02:14→19:39)
--- NOTE | 2018-04-25 02:44 | NUR ---
Respiratory note: AT BEDSIDE TO ASSESS PT. PT CURRENTLY STILL ON T-PIECE TRIAL. PT APPEARS COMFORTABLY SLEEPING AT THIS TIME. RR 21, HR 87, BP 139/70, POX 99% ON 8LPM COOL AEROSOL WITH FLOWING FIO2 OF 35%. BS ARE FINE COURSE SXD FOR SCANT BEAL. GAG SEEN WHEN SX VIA ETT. SXD CATHETER CHANGED AT THIS TIME. PT SLIGHTLY MOVES LEFT HAND WITH STIMULATION. WILL CONTINUE TO MONITOR.
[2018-04-25 04:08] LABS: Basophils # (auto) 0 uL; Basophils % (auto) 0.1 % (0.0-2.0); Eosinophils # (auto) 0 uL; Eosinophils % (auto) 0.2 % (0.0-7.0); Hematocrit 32.1 % (36.0-46.0); Hemoglobin 10.7 g/dL (12.2-16.2); Lymphocytes % (auto) 10.3 % (10.0-50.0); Mean Corpuscular Hemoglobin 30.6 pg (28.0-32.0); Mean Corpuscular Hgb Conc. 33.2 g/dL (32.0-36.0); Monocytes # (auto) 0.7 uL; Monocytes % (auto) 7.2 % (0.0-12.0); Neutrophils # (auto) 7.9 uL; Neutrophils % (auto) 82.2 % (37.0-80.0); Nucleated Red Blood Cells % 0.1 %; Platelet Count (auto) 159 10^3/uL (140-450); Red Blood Cells 3.49 10^6/uL (4.0-5.20); Red Cell Distribution Width 13.8 % (11.8-14.3); White Blood Cell 9.6 10^3/uL (4.4-10.8)
[2018-04-25 04:36] LABS: Potassium 3.4 mmol/L (3.5-5.1)
[2018-04-25 04:40] LABS: Albumin 1.5 g/dL (3.4-5.0); BUN/Creatinine Ratio 24.5; Calcium 8.3 mg/dL (8.5-10.1)
[2018-04-25 04:42] LABS: Bilirubin, Total 0.3 mg/dL (0.2-1.0); Total Protein 5.6 g/dL (6.4-8.2)
--- NOTE | 2018-04-25 05:43 | NUR ---
RT NOTE: PT RECEIVED ON 35% COOL AEROSOL VIA T-PIECE WITH ET TUBE SECURED BY DIDI AT 22CM AT THE LIP. NO SIGNS OF BREAKDOWN NOTED. NO SIGNS OF RESPIRATORY DISTRESS NOTED AT THIS TIME. EDEMA NOTED IN BILATERAL UPPER EXTREMITIES. WILL CONTINUE TO MONITOR.
[2018-04-25] MEDS: ACCU-CHEK COMFORT CURVE STRIP VI SCH ×4 (06:00→17:53)
[2018-04-25] MEDS: InsuLIN REG 1unit/0.01ml Soln (100units/ml) SC SCH ×4 (06:00→17:53)
[2018-04-25] MEDS: FREE WATER GT SCH ×4 (06:00→17:54)
--- NOTE | 2018-04-25 07:15 | NUR ---
Opening Shift Note: Report received from ALIRIO Spencer. Assumed care of patient, opens eyes -does not respond to commands. Off sedation since 04/21/18. No S/S of distress/SOB or pain. Will continue to monitor for changes Q1hr and PRN. See Px assessment.
--- NOTE | 2018-04-25 07:34 | NUR ---
Patient seen by Dr. Taylor.
--- NOTE | 2018-04-25 07:44 | NUR ---
RT NOTE: HR: 90. RR: 30. SPO2: 98%. BP: 156/75. NO CHANGES NOTED AT THIS TIME. NO SIGNS OF RESPIRATORY DISTRESS. BS: CLEAR DIMINISH THROUGHOUT. NO SUCTION. WILL CONTINUE TO MONITOR. RT STUDENT: DAVID Moreira
[2018-04-25] MEDS ORDERED: POTASSIUM CHL 20 Meq TABLET PO ONE (09:30)
--- NOTE | 2018-04-25 09:30 | NUR ---
Dr. Jasso seen patient- new orders. lasix, potassium, PRN Hydralazine, Stool for CDiff.
[2018-04-25] MEDS: ENOXAPARIN SOD 40 MG/0.4 ML SYRINGE SC SCH (09:52)
[2018-04-25] MEDS: PANTOPRAZOLE 40 MG/10 ML VIAL IV SCH (09:52)
--- NOTE | 2018-04-25 10:00 | NUR ---
Board and care facility notified- need to know if patient has POA. Waiting to call back.
[2018-04-25] MEDS ORDERED: hydrALAZINE HCL 20 MG/ML VL ONE (10:06)
[2018-04-25] MEDS ORDERED: FUROSEMIDE 40 MG/4 ML VIAL IV ONE (10:45)
--- NOTE | 2018-04-25 10:59 | NUR ---
Stool for CDIFF sent to lab.
[2018-04-25] MEDS ORDERED: SODIUM CHLORIDE 0.9% 1,000 ML IV SCH (11:15)
[2018-04-25] MEDS ORDERED: LINEZOLID 600MG/300ML 300 ML IV ONE (11:15)
[2018-04-25] MEDS ORDERED: METOPROLOL TARTRATE 25 MG TAB PO ONE (11:15)
--- NOTE | 2018-04-25 11:32 | NUR ---
RT NOTE: NO CHANGES NOTED. NO SIGNS OF RESPIRATORY DISTRESS. BS: CLEAR/DIMINISHED THROUGHOUT. SECRETION SMALL AMOUNT OF CREAMY WITH BLOOD TINGED PLUG SUCTIONED. WILL CONTINUE TO MONITOR. RT STUDENT: DAVID Moreira
[2018-04-25] MEDS ORDERED: hydrALAZINE HCL 20 MG/ML VL IV PRN ×2 (12:00)
[2018-04-25] MEDS ORDERED: hydrALAZINE HCL 20 MG/ML VL IV SCH (12:00)
[2018-04-25] MEDS: LEVOFLOXACIN 750MG 150 ML IV SCH (12:00)
[2018-04-25] MEDS: FLUCONAZOLE 200MG/100ML 100 ML IV SCH ×2 (12:00→13:00)
--- NOTE | 2018-04-25 12:02 | NUR ---
Nutrition Follow-up Notes Wt.: 76.0 kg today. Pt's on T-piece, in isolation room, no immediate family by bedside during rounds earlier. Pt's NPO, on EN support with Glucerna 1.2 J Carlos @ 20 ml/hr providing 576 kcal, 28 gms proteins, 386 ml free water, had 30 ml residuals noted by RN this morning. Pt with inadequate EN support d/t low initiation rate delivery of concentrated formula aeb current EN infusion meets 30% to 37% of est caloric needs and 36% to 46% of est protein needs. Est. Needs: 1550 kcal to 1900 kcal (20-25 kcal/kgBW), 61 gms to 77 gms pro (0.8-1.0 gms/kgBW). Will continue to monitor pertinent labs and reassess nutrient need prn Labs: Gluc 161 H, Na 149 H, K 3.4 L, Cl 115 H, BUN 27 H, Cr 1.10 H, Ca 8.3 L, Tpro 5.6 L, Alb 1.5 L Skin: Taz scale 12, high risk, redness on hip per RN doc GI: Pt had 25 ml stool output this morning per icu clerk. PES: Partially resolved: Increased nutrient needs r/t current chronic medical condition aeb intubated, sedated, NPO. Altered nutrition related lab values r/t current/chronic medical condition aeb hyperglycemia, hyponatremia, hyperchloremia, elev. renal labs, HbA1c, hypocalcemia Will continue to monitor NPO status, EN tolerance, skin status, pertinent labs and weight trend. F/u in 2 to 3 days. Rec.: 1.) If still NPO with EN support, consider gradual increase on feeding rate with Glucerna 1.2 J Carlos to60 ml/hr goal rate as tolerated. 2.) If Albumin level continues trending down, consider Prostat 1 pkt BID. 3.) Consider daily MVI with minerals and Asc acid 500 mgs BID. 4.) Advance gradually to oral diet when medically appropriate. 5.) Refer to CDE/RD for further nutrition education and weight monitoring upon discharged. 6.) Continue current plan of care.
--- NOTE | 2018-04-25 12:35 | NUR ---
RT NOTE: NO CHANGES NOTED AT THIS TIME. NO SIGNS OF RESPIRATORY DISTRESS. LUNG SOUNDS CLEAR/DIMINISHED. NO SUCTION. WILL CONTINUE TO MONITOR.
--- NOTE | 2018-04-25 12:45 | NUR ---
Dr Chamberlain at bedside- keep patient on T-piece for another day.
--- NOTE | 2018-04-25 12:45 | NUR ---
Dr. Fuentes at bedside- signed off. Addendum: 04/25/18 at 1628 by Catina Hernandez RN Disregard different patient.
[2018-04-25] MEDS: SOD CHL 0.45% WITH 20MEQ KCL 1,000 ML IV SCH (14:15)
--- NOTE | 2018-04-25 14:30 | NUR ---
RT NOTE: NO SIGNS OF RESPIRATORY DISTRESS NOTED. O2 DECREASED FROM 35% TO 28%. PT IS BEGINNING TO WAKE UP AND FOLLOW COMMANDS. DR HAS ORDERED FOR T-PIECE TO BE LEFT UNTIL TOMORROW. WILL CONTINUE TO MONITOR.
--- NOTE | 2018-04-25 15:45 | NUR ---
NEW GARCIA CATHETER INSERTED- 18FRENCH. SEDIMENT IN 16FRENCH CATHETER -TUBE CLOGGING UP.
--- NOTE | 2018-04-25 15:57 | NUR ---
Dr. Kramer at bedside- new orders. IVF changed.
--- NOTE | 2018-04-25 16:03 | NUR ---
RT NOTE:. NO CHANGES NOTED AT THIS TIME. NO SIGNS OF RESPIRATORY DISTRESS. LUNG SOUNDS ARE CLEAR DIMINISHED T/O NO SUCTION. WILL CONTINUE TO MONITOR.
--- NOTE | 2018-04-25 18:59 | NUR ---
Endorsed care to ALIRIO Lanza.
--- NOTE | 2018-04-25 20:00 | NUR ---
PATIENT ADMITTED ON 04/18/2018 FROM [facility]. SYMPTOMS ALOC, RESPIRATORY DISTRESS, LOW BLOOD PRESSURE, HYPONATREMIA, PNA AND SEPSIS. ALERT. POSSIBLE FOLLOWING SIMPLE COMMANDS WITH ARMS. SHE NIGHT STOCKER BUT DOESN'T LET GO. WITHDRAWS ALL EXTREMITIES. ALL PULSES PALPABLE. EYES ARE OPEN. ORAL CARE DONE. DRY LIPS. MOISTURIZER TO LIPS. ORAL NGT WITH GLUCERNA AT 40CC/HR. RESIDUAL IS 50CC. FLEXASEAL IN PLACE. NEW GARCIA TODAY, GARCIA DRAINING ADEQUATE AMOUNTS OF YELLOW LIQUID WITH SEDIMENT. NOTED RASH ON ABDOMEN. [facility] TLC HAS A CURRENT DRSG AND SHOWS NO REDNESS OR SWELLING. RECEIVING FREE WATER Q 6 HOURS FOR HIGH NA LEVEL. REPOSITIONED TO LEFT SIDE AT 1930. NSR WITHOUT ECTOPY
--- NOTE | 2018-04-25 22:00 | NUR ---
REPOSITIONED TO HER BACK. SUCTIONED CLEAR/BROWN FLECKS FROM HER ETT. ON T PIECE AT 28%. RR 25. O2 SATURATION 100%. ABDOMEN SOFT. FLEXASEAL DRAINING, NO LEAK. GARCIA: ADEQUATE OUTPUT. NSR WITHOUT ECTOPY. ONE PORT ON CENTRAL LINE IS CLOTTED. TUBE FEED : 80CC IN 25CC RESIDUAL.
[2018-04-25] MEDS: LINEZOLID 600MG/300ML 300 ML IV SCH (22:03)
[2018-04-25] MEDS: METOPROLOL TARTRATE 25 MG TAB PO SCH (22:04)
--- NOTE | 2018-04-25 23:34 | NUR ---
PT GIVEN NEB TX. PT REMAINS ON T-PIECE WITH NO RESPIRATORY DISTRESS. 8.0 ETT REMAINS AT 22CM AT THE LIP. ETT MOVED TO THE CENTER. NO BREAKDOWN NOTED. ETS WITHOUT SECRETIONS. Addendum: 04/25/18 at 2337 by SIRI OROZCO, RT NOTE TIME INTENDED FOR 1822.
[2018-04-26] VITALS (57 sets, daily range): BP systolic 102–165; BP diastolic 51–96
[2018-04-26] MEDS: ALBUTEROL SULF 2.5 MG/0.5ML(0.5%) NEB SOLN NEB SCH ×4 (00:12→19:07)
[2018-04-26] MEDS: FREE WATER GT SCH ×5 (00:29→23:59)
[2018-04-26] MEDS: PIPERACILLIN-TAZOB 3.375GM 100 ML IV SCH ×4 (02:00→19:37)
--- NOTE | 2018-04-26 02:00 | NUR ---
CHG BATH. SILICONE LOTION APPLIED. COMPLETE BED LINEN CHANGE. CENTRAL LINE DRESSING CHANGE. TUBE FEEDING OFF SINCE MIDNIGHT. LARGE EMESIS IN BED. FLEXASEAL HAS A GOOD SEAL. SMALL AMOUNT OF LEAKAGE AT RECTAL SITE. FLEXASEAL HAS DRAINED 100CC SO FAR THIS SHIFT.
--- NOTE | 2018-04-26 03:50 | NUR ---
INLINE SUCTION CHANGED.
[2018-04-26 04:42] LABS: Albumin 1.7 g/dL (3.4-5.0); Calcium 8.2 mg/dL (8.5-10.1); Potassium 3.1 mmol/L (3.5-5.1)
[2018-04-26 04:48] LABS: BUN/Creatinine Ratio 22.6; Bilirubin, Total 0.3 mg/dL (0.2-1.0); Phosphorus 2.5 mg/dL (2.5-4.90); Total Protein 5.6 g/dL (6.4-8.2)
[2018-04-26 04:49] LABS: Hemoglobin 11.2 g/dL (12.2-16.2); Mean Corpuscular Hgb Conc. 32.9 g/dL (32.0-36.0); Mean Corpuscular Volume 91.1 fL (80.0-100.0); Platelet Count (auto) 181 10^3/uL (140-450); Red Blood Cells 3.73 10^6/uL (4.0-5.20); Red Cell Distribution Width 13.2 % (11.8-14.3); White Blood Cell 8.3 10^3/uL (4.4-10.8)
[2018-04-26 04:53] LABS: Basophils % (manual) 0 (0.0-2.0); Blast Cells 0; Eosinophils % (manual) 0 (0-7); Myelocytes % 0; Promyelocytes % 0; Reactive Lymphocytes 0
[2018-04-26] MEDS: ACCU-CHEK COMFORT CURVE STRIP VI SCH ×5 (06:02→23:58)
[2018-04-26] MEDS: InsuLIN REG 1unit/0.01ml Soln (100units/ml) SC SCH ×5 (06:02→23:58)
--- NOTE | 2018-04-26 06:26 | NUR ---
Respiratory note:T-PIECE: RECEIVED PATIENT ON T-PIECE 28%/ 5LPM. PATIENT HAS 8.0 ETT AND IS SECURED WITH DIDI AT 20CM MARKING AT THE LIP. DIDI SITE SKIN/LIPS: INTACT NO SIGNS OF BREAKDOWN OR REDNESS NOTED AT THIS TIME, TUBE WAS FOUND ON LEFT SIDE OF MOUTH. RE-ESTABLISH TUBE TO CENTER. INLINE MED NEB TX GIVEN AT THIS TIME WITH NO ADVERSE REACTIONS NOTED. PRE/POST B/S CLEAR/DIMINISHED OLIVER T/O WITH IMPROVE AERATION NOTED UPPER LOBES. SKIN: PATIENT HAS OLIVER EDEMA NOTED IN UPPER EXTREMITIES. NO EDEMA NOTED LOWER EXTREMITIES. MENTATION: AWAKE AND ALERT SQUEEZES HAND AND LIFTING FEET, FOLLOWS COMMANDS. WILL SPEAK TO DAY RN TO PUSH FOR POSSIBLE EXTUBATION, GOOD CANDIDATE, WILL FOLLOW DOCTORS REQUEST AND APPROVAL. PATIENT TOLERATING T-PIECE WELL AT THIS TIME. VENT AT BEDSIDE STANDBY FOR NOW. VENT CONNECTED TO RED OUTLET, AMBU BAG AT BEDSIDE WITH MASK CONNECTED TO 02. VENT ESPRIT V#14. X-RAY SHOWS ESTIMATED 2.3 CM ABOVE DU. WILL CONTINUE TO MONITOR PATIENT. PLAN: EXTUBATED, CONTINUE MED NEB TX'S, SUCTION PRN.
[2018-04-26 06:33] LABS: Band Neutrophils % (manual) 3; Lymphocytes % (manual) 14 (10.0-50.0); Metamyelocytes % 1; Monocytes % (manual) 6 (0-12)
[2018-04-26] MEDS: hydrALAZINE HCL 20 MG/ML VL IV PRN ×2 (06:50→21:38)
[2018-04-26] MEDS ORDERED: POTASSIUM CHL 20MEQ/100ML 100 ML IV ONE (07:00)
--- NOTE | 2018-04-26 07:00 | NUR ---
REPORT RECEIVED FROM ROTARY FURNACE TENDER NURSE. PATIENT RESTING IN BED AT THIS TIME. PATIENT RESTING IN BED INTUBATED ON T-PIECE, SATURATIONS STABLE. RESPIRATIONS EVEN AND UNLABORED. NO SIGNS OF ACUTE DISTRESS NOTED. CALL LIGHT IN REACH, BED IN LOW POSITION. WILL CONTINUE TO MONITOR.
[2018-04-26] MEDS ORDERED: FLUCONAZOLE 200MG/100ML 100 ML IV SCH (08:00)
--- NOTE | 2018-04-26 08:51 | NUR ---
DR CABRERA AT BEDSIDE TO ASSESS PATIENT AND DISCUSS PLAN OF CARE. PER MD EXTUBATE PATIENT. INFORMED RESPIRATORY THERAPY.
[2018-04-26] MEDS: LINEZOLID 600MG/300ML 300 ML IV SCH ×2 (09:38→21:36)
[2018-04-26] MEDS: PANTOPRAZOLE 40 MG/10 ML VIAL IV SCH (09:38)
[2018-04-26] MEDS: ENOXAPARIN SOD 40 MG/0.4 ML SYRINGE SC SCH (09:38)
[2018-04-26] MEDS: METOPROLOL TARTRATE 25 MG TAB PO SCH ×2 (09:40→21:39)
--- NOTE | 2018-04-26 09:55 | NUR ---
Respiratory note:EXTUBATION DONE AT THIS TIME. WEANING PARAMETERS ON T-PIECE: NIF -40, POSITIVE LEAK TEST. PER DR. CABRERA ORDER TO EXTUBATE. PLACED ON COOL AEROSOL 27% AT 5LPM. SPO2 98%, HR 95, BP 117/79, RR 22, BS RHONCHI, PATIENT HAS STRONG COUGH, ABLE TO EXPEL SECRETIONS. NO STRIDOR NOTED AT THIS TIME. ALIRIO MEZA AT BEDSIDE AWARE OF CHANGES. WILL CONTINUE TO MONITOR PATIENT.
--- NOTE | 2018-04-26 09:55 | NUR ---
PATIENT EXTUBATED AND PLACED ON COOL MIST MASK 35%. TOLERATING WELL SATURATIONS 99%. NO STRIDOR NOTED. WILL CONTINUE TO MONITOR.
--- NOTE | 2018-04-26 11:05 | NUR ---
DR SIMS AT BEDSIDE TO ASSESS PATIENT AND DISCUSS PLAN OF CARE. PER MD PATIENT CAN GO TO [facility] IF CLEARED BY DR CABRERA.
--- NOTE | 2018-04-26 12:38 | NUR ---
DR ALEMAN AT BEDSIDE TO DISCUSS PLAN OF CARE. ORDERS NOTED IN CHART.
[2018-04-26] MEDS ORDERED: POTASSIUM PHOSPHATE 22 MEQ in SODIUM CHL 0.9% 100 ML IV ONE (12:45)
[2018-04-26] MEDS: LEVOFLOXACIN 750MG 150 ML IV SCH (12:46)
[2018-04-26] MEDS: SOD CHL 0.45% WITH 20MEQ KCL 1,000 ML IV SCH (12:48)
--- NOTE | 2018-04-26 12:50 | NUR ---
PLACED PATIENT ON 2 LITERS NASAL CANULA. PATIENT TOLERATING WELL. WILL CONTINUE TO MONITOR.
[2018-04-26] MEDS ORDERED: FUROSEMIDE 20 MG/2 ML VIAL IV ONE (13:00)
--- NOTE | 2018-04-26 15:10 | NUR ---
SWALLOW EVALUATION COMPLETED PATIENT FAILED. PATIENT WAS CHOKING ON THIN LIQUIDS AND COUGHED UP APPLE SAUCE.
--- NOTE | 2018-04-26 15:21 | NUR ---
SWALLOW EVALUATION. PATIENT HAS OWN TEETH UPPER AND LOWER. PATIENT APPEARED TO TOLERATE PUREE BUT UPON INTRODUCTION OF 1/2 TEASPOON THIN LIQUIDS PATIENT BEGAN COUGHING AND WAS UNABLE TO RECOVER UNTIL PATIENT WAS SUCTIONED. RECOMMEND NPO AT THIS TIME. PATIENT IS UNSAFE FOR PO INTAKE.
[2018-04-26] MEDS: FLUCONAZOLE 200MG/100ML 100 ML IV SCH ×2 (16:09→17:57)
--- NOTE | 2018-04-26 21:32 | NUR ---
PAGED RT FOR PRN MED NEB: PATIENT SOUNDS TIGHT, SLIGHT INTERMITTENT EXPIRATORY WHEEZE NOTED
--- NOTE | 2018-04-26 21:32 | NUR ---
BED BATH WITH CHG WIPES, GERARDO CARE, GARCIA CARE, ORAL CARE, AND FULL LINEN CHANGE COMPLETED
--- NOTE | 2018-04-26 21:39 | NUR ---
CYNTHIA, RT, NOTIFIED OF MUSIC AUTOGRAPHER'S ASSESSMENT, ASKED FOR RT TO ASSESS FOR NECESSITY OF MED NEB PRN TREATMENT
--- NOTE | 2018-04-26 21:40 | NUR ---
SCHEDULED LOPRESSOR PO HELD, PATIENT FAILED SWALLOW EVAL - HYDRALAZINE PRN GIVEN
[2018-04-27] VITALS (25 sets, daily range): BP systolic 135–164; BP diastolic 64–96
[2018-04-27] MEDS: ALBUTEROL SULF 2.5 MG/0.5ML(0.5%) NEB SOLN NEB SCH ×4 (00:53→18:59)
[2018-04-27] MEDS: PIPERACILLIN-TAZOB 3.375GM 100 ML IV SCH ×4 (01:42→19:24)
--- NOTE | 2018-04-27 03:45 | NUR ---
ATTEMPTED TO GIVE THICKENED WATER: PATIENT SWALLOWED MULTIPLES TIMES, FOLLOWED BY COUGHING
[2018-04-27 04:10] LABS: Basophils # (auto) 0 uL; Basophils % (auto) 0.1 % (0.0-2.0); Eosinophils # (auto) 0.1 uL; Eosinophils % (auto) 0.8 % (0.0-7.0); Hematocrit 33.4 % (36.0-46.0); Hemoglobin 11.2 g/dL (12.2-16.2); Lymphocytes # (auto) 1.1 uL; Lymphocytes % (auto) 15.5 % (10.0-50.0); Mean Corpuscular Hemoglobin 30.2 pg (28.0-32.0); Mean Corpuscular Hgb Conc. 33.4 g/dL (32.0-36.0); Mean Corpuscular Volume 90.4 fL (80.0-100.0); Monocytes # (auto) 0.6 uL; Monocytes % (auto) 8.1 % (0.0-12.0); Neutrophils # (auto) 5.5 uL; Neutrophils % (auto) 75.5 % (37.0-80.0); Nucleated Red Blood Cells % 0.1 %; Platelet Count (auto) 164 10^3/uL (140-450); Red Cell Distribution Width 13.5 % (11.8-14.3); White Blood Cell 7.3 10^3/uL (4.4-10.8)
[2018-04-27 04:26] LABS: Albumin 1.8 g/dL (3.4-5.0); BUN/Creatinine Ratio 17.7; Bilirubin, Total 0.3 mg/dL (0.2-1.0); Calcium 8.1 mg/dL (8.5-10.1); Magnesium 1.6 mg/dL (1.6-2.6); Total Protein 5.5 g/dL (6.4-8.2)
[2018-04-27 05:26] LABS: Potassium 2.9 mmol/L (3.5-5.1)
[2018-04-27] MEDS: InsuLIN REG 1unit/0.01ml Soln (100units/ml) SC SCH ×3 (05:51→17:20)
[2018-04-27] MEDS: ACCU-CHEK COMFORT CURVE STRIP VI SCH ×3 (05:51→17:20)
[2018-04-27] MEDS: FREE WATER GT SCH (05:51)
[2018-04-27] MEDS: SOD CHL 0.45% WITH 20MEQ KCL 1,000 ML IV SCH ×3 (05:52→20:15)
--- NOTE | 2018-04-27 05:52 | NUR ---
POTASSIUM LEVEL 2.9 - PAGED MENDER KNIT GOODS HOSPITALIST
--- NOTE | 2018-04-27 06:27 | NUR ---
NOTIFIED LOUIS REYEZ OF POTASSIUM LEVEL - ORDERS FOR 20 MEQ KCL IVPB. ORDERS READBACK AND VERIFIED
[2018-04-27] MEDS ORDERED: POTASSIUM CHL 20MEQ/100ML 100 ML IV ONE ×2 (06:29→06:30)
--- NOTE | 2018-04-27 07:10 | NUR ---
REPORT AND CARE ENDORSED TO ALIRIO GOODRICH
[2018-04-27] MEDS: LINEZOLID 600MG/300ML 300 ML IV SCH ×2 (09:54→22:00)
[2018-04-27] MEDS: PANTOPRAZOLE 40 MG/10 ML VIAL IV SCH (09:54)
[2018-04-27] MEDS: METOPROLOL TARTRATE 25 MG TAB PO SCH ×3 (09:55→22:00)
[2018-04-27] MEDS: ENOXAPARIN SOD 40 MG/0.4 ML SYRINGE SC SCH (09:55)
--- NOTE | 2018-04-27 10:05 | NUR ---
KITCHEN FOOD ASSEMBLER FOR DR. Daksha CHEN
--- NOTE | 2018-04-27 10:08 | NUR ---
Dr. Bush at bedside.
[2018-04-27] MEDS ORDERED: POTASSIUM CHL 20MEQ/100ML 100 ML IV SCH ×2 (10:15)
[2018-04-27] MEDS: POTASSIUM CHL 20MEQ/100ML 100 ML IV SCH ×2 (11:14→11:57)
--- NOTE | 2018-04-27 11:54 | NUR ---
Nutrition Consult and Follow-up Notes Wt.: 76.6 kg today. Pt's on oxygen via nasal cannula, asleep, no immediate family at bedside during rounds this morning. Pt had swallow eval by ST yesterday, off from EN suppor, currently NPO at this time, per nursing. Pt's previously on EN support with Glucerna 1.2 J Carlos @ 10 ml/hr providing 288kcal, 14 gms proteins, 193 ml free water, had 180 ml residuals noted by RN this morning. Est. Needs: 1550 kcal to 1900 kcal (20-25 kcal/kgBW), 61 gms to 77 gms pro (0.8-1.0 gms/kgBW). Will continue to monitor pertinent labs and reassess nutrient need prn Labs: Gluc 136 H, Ca 8.1 L, K 2.9 L, AST 107 H, ALT 201 H, Tpro 5.5 L, Alb 1.8 L Skin: Taz scale 14, mod risk, redness on Left hip per screw machine operator swiss type. GI: Pt had 100 ml stool output this morning per screw machine operator swiss type. PES: Partially resolved: Increased nutrient needs r/t current chronic medical condition aeb intubated, sedated, NPO. Altered nutrition related lab values r/t current/chronic medical condition aeb hyperglycemia, hyponatremia, hyperchloremia, elev. renal labs, HbA1c, hypocalcemia Will continue to monitor NPO status, EN tolerance, skin status, pertinent labs and weight trend. F/u in 2 to 3 days. Rec.: 1.) If still NPO, consider to resume EN support with formula choice of Vital High Protein @ 75 ml/hr goal rate as tolerated when medically appropriate. 2.) If Albumin level continues trending down, consider Prostat 1 pkt BID. 3.) Consider daily MVI with minerals and Asc acid 500 mgs BID pnr. 4.) Advance gradually to oral diet (per ST's diet texture recommendation) when medically appropriate. 5.) Refer to CDE/RD for further nutrition education and weight monitoring upon discharged. 6.) Continue current plan of care. Thank you for this consult.
[2018-04-27] MEDS: LEVOFLOXACIN 750MG 150 ML IV SCH (11:57)
[2018-04-27] MEDS: FLUCONAZOLE 200MG/100ML 100 ML IV SCH ×2 (16:21→17:05)
--- NOTE | 2018-04-27 16:38 | NUR ---
Dr. Taylor at bedside.
--- NOTE | 2018-04-27 19:30 | NUR ---
DR GUIDRY AT BEDSIDE
--- NOTE | 2018-04-27 21:00 | NUR ---
BED BATH, GERARDO CARE, GARCIA CARE, ORAL CARE, AND PARTIAL LINEN CHANGE COMPLETED
[2018-04-27] MEDS: hydrALAZINE HCL 20 MG/ML VL IV PRN (22:01)
[2018-04-28] VITALS (7 sets, daily range): BP systolic 140–152; BP diastolic 72–79
--- NOTE | 2018-04-28 01:09 | NUR ---
PER LOUIS CADET TO DOWNGRADE PATIENT TO TELE
[2018-04-28] MEDS: ALBUTEROL SULF 2.5 MG/0.5ML(0.5%) NEB SOLN NEB SCH ×4 (01:10→19:19)
--- NOTE | 2018-04-28 01:11 | NUR ---
Respiratory note: PT REFUSING BREATHING TX AT THIS TIME. PT CURRENTLY ON NC2L WITH NO RESP DISTRESS. SPO2 99%,HR 90,RR 20
--- NOTE | 2018-04-28 03:11 | NUR ---
TRANSFERRED TO ROOM 273B WITHOUT PROBLEMS
[2018-04-28] MEDS: PIPERACILLIN-TAZOB 3.375GM 100 ML IV SCH ×4 (04:00→20:16)
[2018-04-28 05:57] LABS: Basophils # (auto) 0 uL; Basophils % (auto) 0.3 % (0.0-2.0); Eosinophils # (auto) 0.1 uL; Eosinophils % (auto) 0.7 % (0.0-7.0); Hematocrit 35.2 % (36.0-46.0); Hemoglobin 11.6 g/dL (12.2-16.2); Lymphocytes # (auto) 0.9 uL; Lymphocytes % (auto) 12.6 % (10.0-50.0); Mean Corpuscular Hemoglobin 30.3 pg (28.0-32.0); Mean Corpuscular Volume 91.7 fL (80.0-100.0); Monocytes # (auto) 0.3 uL; Monocytes % (auto) 4.4 % (0.0-12.0); Platelet Count (auto) 164 10^3/uL (140-450); Red Blood Cells 3.84 10^6/uL (4.0-5.20); Red Cell Distribution Width 13.7 % (11.8-14.3); White Blood Cell 7.3 10^3/uL (4.4-10.8)
[2018-04-28] MEDS: InsuLIN REG 1unit/0.01ml Soln (100units/ml) SC SCH ×5 (06:00→22:28)
[2018-04-28 06:15] LABS: BUN/Creatinine Ratio 18.3; Calcium 7.9 mg/dL (8.5-10.1); Potassium 3.9 mmol/L (3.5-5.1)
[2018-04-28] MEDS: SOD CHL 0.45% WITH 20MEQ KCL 1,000 ML IV SCH ×2 (06:15→16:15)
[2018-04-28] MEDS: ACCU-CHEK COMFORT CURVE STRIP VI SCH ×5 (06:23→22:28)
--- NOTE | 2018-04-28 07:30 | NUR ---
Opening Shift Note REceived report from Roma AMEZQUITA.Assumed care of patient, awake and very delayed in answering but oriented. No S/S of distress/SOB or pain. Suctioned secretions. Kept all side rails up. Instructed on POC and to call for assist PRN, will continue to monitor for changes Q1hr and PRN.
--- NOTE | 2018-04-28 08:45 | NUR ---
TURNED PATIENT TO HER RIGHT SIDE, POSITIONED COMFORTABLY.
[2018-04-28] MEDS: PANTOPRAZOLE 40 MG/10 ML VIAL IV SCH (09:44)
[2018-04-28] MEDS: METOPROLOL TARTRATE 25 MG TAB PO SCH ×2 (09:44→22:00)
[2018-04-28] MEDS: ENOXAPARIN SOD 40 MG/0.4 ML SYRINGE SC SCH (09:45)
--- NOTE | 2018-04-28 11:00 | NUR ---
TURNED PATIENT TO HER LEFT SIDE, POSITIONED COMFORTABLY.
--- NOTE | 2018-04-28 12:03 | NUR ---
BEAUTY SALES CONSULTANT DR. Daksha CHEN
--- NOTE | 2018-04-28 12:05 | NUR ---
Dr. Deepti Bush at bedside. Received verbal order to have PICC line for patient. Patient is unable to sign, [facility] at [phone]. No answer, left a voicemail regarding need for PICC line consent.
--- NOTE | 2018-04-28 12:13 | NUR ---
Pt reports no c/o pain and or discomfort when asked. Pt is non ambulatory at the moment. Pt recd PROM exercises to bilat UE's and LE's [id number]. Pt did have c/o discomfort when receiving PROM to GM, pt could not rate pain level however, pulled arm away and did have a grimace on her face. Addendum: 04/28/18 at 1215 by Tricia Alfaro PT Amended: Links added.
[2018-04-28] MEDS: LINEZOLID 600MG/300ML 300 ML IV SCH ×2 (12:29→22:27)
[2018-04-28] MEDS: hydrALAZINE HCL 20 MG/ML VL IV PRN (12:30)
--- NOTE | 2018-04-28 13:45 | NUR ---
TURNED PATIENT TO HER RIGHT SIDE, POSITIONED COMFORTABLY.
--- NOTE | 2018-04-28 14:30 | NUR ---
Provider/Hospitalis at bedside Addendum: 04/28/18 at 1435 by ANDERS VALLADARES RN DR. BELCHER AT BEDSIDE. NEUROLOGY FF UP DONE.
--- NOTE | 2018-04-28 14:30 | NUR ---
CALLED [facility] C[facility] AGAIN, NO ANSWER.
--- NOTE | 2018-04-28 14:35 | NUR ---
INFORMED YAZ PALMER ABOUT BOARD AND CARE NOT ANSWERING. TRYING TO GET PICC LINE CONSULT. SAID TO CALL HOUSE SUP AND EXPLAIN THE SITUATION AND PROCEED TO PICC LINE INSERTION.
--- NOTE | 2018-04-28 14:40 | NUR ---
CALLED [facility], SPOKE WITH [place]. INFORMED ABOUT THE PICC LINE CONSULT, AND NO FAMILY MEMBER CONTACT NUMBER TO CALL TO. PTPTT ORDERED PROTOCOL. DR. BELCHER SIGNED FOR THE 2ND SIGNATURE FOR THE PICC LINE CONSENT.
[2018-04-28] MEDS: LEVOFLOXACIN 750MG 150 ML IV SCH (15:02)
--- NOTE | 2018-04-28 16:05 | NUR ---
PATIENT TAKEN TO CT BY BED ASSISTED BY 2 TECHS.
--- NOTE | 2018-04-28 16:25 | NUR ---
PATIENT IS BACK TO ROOM BY BED, HEAD CT WITHOUT CONTRAST DONE.
--- NOTE | 2018-04-28 17:40 | NUR ---
TURNED PATIENT TO HER LEFT SIDE, POSITIONED COMFORTABLY.
[2018-04-28] MEDS: FLUCONAZOLE 200MG/100ML 100 ML IV SCH ×2 (17:43→18:56)
[2018-04-28 19:01] LABS: Partial Thromboplastin Time 25.2 sec (23.78-33.04); Prothrombin Time 10.7 sec (9.27-12.13)
--- NOTE | 2018-04-28 20:00 | NUR ---
Opening Shift Note: A&Ox1-2, delay in speech present. Currently on 2LO2 via NC; unable to state whether she wears oxygen outside of the hospital; pain level 0/10; currently bedrest/Q2 turn. Bed locked in lowest position, side rails up x2, call light within reach, and bed alarm on for patient safety. Patient is an ICU downgrade on 04/28/18. Previously intubated on 04/18/18 and extubated 04/26/18. Car inserted on 04/18/18 for strict I/O. Rectal tube inserted on 04/18/18. Right triple lumen IJ inserted on 04/18/18 in ER; white port does not flush. Skin: generalized bruising present with scabs on bilateral feet; no open wounds. Preventative optifoam on sacral area. POC discussed but patient has poor concentration. Very congested cough but unable to produce sputum. Will continue to round and reposition.
--- NOTE | 2018-04-28 22:30 | NUR ---
Deep suction completed using sterile technique.
[2018-04-29] MEDS: ALBUTEROL SULF 2.5 MG/0.5ML(0.5%) NEB SOLN NEB SCH ×4 (00:10→18:48)
[2018-04-29] MEDS: SOD CHL 0.45% WITH 20MEQ KCL 1,000 ML IV SCH ×3 (00:30→15:55)
[2018-04-29] MEDS: PIPERACILLIN-TAZOB 3.375GM 100 ML IV SCH ×2 (01:41→07:39)
--- NOTE | 2018-04-29 04:53 | NUR ---
Deep suction completed using sterile technique.
[2018-04-29 05:00] VITALS: BP 141/75
[2018-04-29] MEDS: ACCU-CHEK COMFORT CURVE STRIP VI SCH ×2 (05:36→11:24)
[2018-04-29] MEDS: InsuLIN REG 1unit/0.01ml Soln (100units/ml) SC SCH ×2 (05:36→11:24)
--- NOTE | 2018-04-29 05:36 | NUR ---
0600 insulin held related to patient's NPO status. Current blood sugar is 134.
--- NOTE | 2018-04-29 07:25 | NUR ---
Opening Shift Note Received report from Roma AMEZQUITA. Assumed care of patient, asleep. NOted intact & patent harvey catheter and rectal tube. No S/S of distress/SOB or pain. Placed call light within reach, kept 2 side rails up, will continue to monitor for changes Q1hr and PRN.
--- NOTE | 2018-04-29 07:40 | NUR ---
TURNED PATIENT TO HER RIGHT SIDE, POSITIONED COMFORTABLY.
--- NOTE | 2018-04-29 08:30 | NUR ---
RECEIVED A CALL FROM PICC LINE NURSE REGARDING PATIENT'S CONSULT, CONSENTS ALL SIGNED AND COMPLETE.
[2018-04-29] MEDS: METOPROLOL TARTRATE 25 MG TAB PO SCH ×2 (09:31→22:00)
[2018-04-29] MEDS: ENOXAPARIN SOD 40 MG/0.4 ML SYRINGE SC SCH (09:41)
[2018-04-29] MEDS: LINEZOLID 600MG/300ML 300 ML IV SCH ×2 (09:41→22:51)
[2018-04-29] MEDS: PANTOPRAZOLE 40 MG/10 ML VIAL IV SCH (09:41)
--- NOTE | 2018-04-29 09:45 | NUR ---
P.T. AT BEDSIDE, DOING PASSIVE ROM EXERCISES WITH PATIENT, SITTING AT THE EDGE OF BEDSIDE WITH SUPPORT. PATIENT TOLERATING WELL. WILL TURN THE PATIENT AFTER P.T. IS DONE.
--- NOTE | 2018-04-29 10:15 | NUR ---
TURNED PATIENT TO HER RIGHT SIDE, POSITIONED COMFORTABLY.
[2018-04-29] MEDS: LEVOFLOXACIN 750MG 150 ML IV SCH (11:23)
--- NOTE | 2018-04-29 12:30 | NUR ---
TURNED PATIENT TO HER LEFT SIDE, POSITIONED COMFORTABLY.
--- NOTE | 2018-04-29 13:16 | NUR ---
PICC LINE NURSE AT BEDSIDE.
--- NOTE | 2018-04-29 14:05 | NUR ---
PICC line placement Patient educated on need for PICC line placement. All risks and benefits explained and all questions and concerns addressed prior to procedure. Noted past medical history and allergies with no contraindications. INR and Plt counts within acceptable range. 5fr PICC line inserted via RIGHT BASILIC vein using [employer] US and Tip Location System. Sterile technique with maximum barrier precautions utilized. Blood return obtained from each of 2 lumens and each flushed easily with NS using proper technique. PICC secured with Stat-lock; biodisc and occlusive dressing applied. Stat portable chest x-ray obtained for PICC tip placement. *Baseline Arm Circumference 31CM. PICC lot #[id number]. INTERNAL LENGTH 37CM EXTERNAL LENGTH 1CM
[2018-04-29] MEDS ORDERED: LIDOCAINE 1% (LOCAL ANESTH.) PF 5ml SDV ID ONE (14:15)
--- NOTE | 2018-04-29 14:17 | NUR ---
Dr. rico at bedside. Received verbal order to re-do swallow eval, start TPN when PICC line is ok to use and deep suction patient's secretions.
--- NOTE | 2018-04-29 14:20 | NUR ---
INFORMED DR. SIMS ABOUT PHARMACIST'S RECOMMENDATION OF DISCONTINUING ZOSYN OR LEVAQUIN OR BOTH. SAID SHE WILL REVIEW THE MEDS FIRST.
--- NOTE | 2018-04-29 14:45 | NUR ---
TURNED PATIENT TO HER RIGHT SIDE, POSITIONED COMFORTABLY.
[2018-04-29] MEDS ORDERED: FLORASTOR (S. BOULARDII) 250 MG CAP PO ONE (15:11)
[2018-04-29] MEDS ORDERED: DEXTROSE (50%) 50ML SYRG IV PRN (15:15)
--- NOTE | 2018-04-29 15:29 | NUR ---
Okay to use PICC line X-ray completed. Primary RN notified.
[2018-04-29] MEDS ORDERED: TPN PER PHARMACY 0 ML IV SCH (15:30)
--- NOTE | 2018-04-29 15:40 | NUR ---
SWALLOW RE-EVALUATION DONE. INFORMED NURSE THAT PATIENT STILL CANNOT SWALLOW, KEEP ON NPO.
--- NOTE | 2018-04-29 15:45 | NUR ---
Dr. Jimenez at bedside. Taught patient how to use the IS, returned david mccray. Patient did 600 air pressure. Addendum: 04/29/18 at 1553 by ANDERS VALLADARES RN DISREGARD ENTRY. WRONG PATIENT.
[2018-04-29] MEDS ORDERED: DEXTROSE (50%) 50ML SYRG IV SCH (15:55)
--- NOTE | 2018-04-29 16:02 | NUR ---
SWALLOW EVALUATED. PT HAS MISSING TEETH. PT IN AN ALTERED STATE OF CONSCIOUSNESS. THIN LIQUIDS EVALUATED. INABILITY TO DEMONSTRATE OR MAINTAIN LIP CLOSURE, LEADING TO LIQUIDS LEAKING FROM THE ORAL CAVITY. NURSING STAFF ADVISED RECOMMEND NPO AT THIS TIME.
--- NOTE | 2018-04-29 16:12 | NUR ---
INFORMED DR. SIMS THAT PRIMARY NURSE CAN'T GIVE FLORASTOR PO, PATIENT IS UNABLE TO SWALLOW.
[2018-04-29 16:28] LABS: Albumin 1.9 g/dL (3.4-5.0); Calcium 8.3 mg/dL (8.5-10.1); Magnesium 1.9 mg/dL (1.6-2.6); Potassium 3.7 mmol/L (3.5-5.1)
--- NOTE | 2018-04-29 16:30 | NUR ---
CDIFF SAMPLE OBTAINED. SENT TO LAB WITH CDIFF FORM.
[2018-04-29 16:31] LABS: Bilirubin, Total 0.5 mg/dL (0.2-1.0); Total Protein 5.7 g/dL (6.4-8.2)
[2018-04-29] MEDS: FLUCONAZOLE 200MG/100ML 100 ML IV SCH ×2 (16:39→18:05)
--- NOTE | 2018-04-29 17:20 | NUR ---
TURNED PATIENT TO HER LEFT SIDE, POSITIONED COMFORTABLY.
[2018-04-29] MEDS ORDERED: POTASSIUM PHOSPHATE 26.4 MEQ in SODIUM CHL 0.9% 100 ML IV ONE (17:30)
[2018-04-29] MEDS ORDERED: ACCU-CHEK COMFORT CURVE STRIP VI SCH (18:00)
[2018-04-29] MEDS ORDERED: InsuLIN REG 1unit/0.01ml Soln (100units/ml) SC SCH (18:00)
--- NOTE | 2018-04-29 18:45 | NUR ---
Pt is alert but unable to verbalize or provide information regarding family, prior living, or current situation. Pt was residing at [facility] and information regarding pt obtained from shoe handler Roly. Stated that pt was referred and admitted to him from [place]. Stated that pt has no known family and has no information on pt. Pt was on service with [employer] prior to admission. Spoke with public health social worker, Nael, who confirmed info from Board and care. Stated that He had been working on obtaining conservatorship for pt due to having no family. Roly stated that pt requires two person assist with all care and that her care level is above the provision of his facility with just Home Health. Stated he could possibly take pt back if she was on hospice. Pt's income is unknown to me at this time and she only has medicare with no secondary. SNF placement is an option but pt has no secondary. Will followup with APS to see if pt is in their system and for additional assistance. Will continue to monitor and provide intervention as appropriate. Addendum: 05/01/18 at 1851 by BBOY BLAND Amended: Links added.
[2018-04-29] MEDS: CLINIMIX PER PHARMACY IV NR (20:13)
[2018-04-29 21:30] VITALS: BP 153/77
[2018-04-29] MEDS: SODIUM CHLOR 0.9% PF (SALINE LOCK) 10ML VIAL/SYR IV SCH (22:00)
[2018-04-29] MEDS: hydrALAZINE HCL 20 MG/ML VL IV PRN (22:57)
[2018-04-30 05:00] VITALS: BP 136/70
[2018-04-30] MEDS: SOD CHL 0.45% WITH 20MEQ KCL 1,000 ML IV SCH ×2 (05:27→14:23)
[2018-04-30] MEDS: ACCU-CHEK COMFORT CURVE STRIP VI SCH ×5 (05:59→23:42)
[2018-04-30] MEDS: InsuLIN REG 1unit/0.01ml Soln (100units/ml) SC SCH ×5 (06:00→23:42)
[2018-04-30] MEDS: ALBUTEROL SULF 2.5 MG/0.5ML(0.5%) NEB SOLN NEB SCH ×4 (06:48→18:20)
[2018-04-30 09:00] VITALS: BP 155/75
[2018-04-30 09:07] LABS: Basophils # (auto) 0 uL; Basophils % (auto) 0.3 % (0.0-2.0); Eosinophils # (auto) 0.1 uL; Eosinophils % (auto) 0.8 % (0.0-7.0); Hematocrit 31.9 % (36.0-46.0); Hemoglobin 10.6 g/dL (12.2-16.2); Lymphocytes # (auto) 0.9 uL; Lymphocytes % (auto) 12.2 % (10.0-50.0); Mean Corpuscular Hemoglobin 30.2 pg (28.0-32.0); Mean Corpuscular Hgb Conc. 33.3 g/dL (32.0-36.0); Mean Corpuscular Volume 90.7 fL (80.0-100.0); Monocytes # (auto) 0.3 uL; Monocytes % (auto) 4.7 % (0.0-12.0); Platelet Count (auto) 140 10^3/uL (140-450); Red Blood Cells 3.52 10^6/uL (4.0-5.20); Red Cell Distribution Width 13.9 % (11.8-14.3); White Blood Cell 7.3 10^3/uL (4.4-10.8)
[2018-04-30 09:36] LABS: Albumin 1.9 g/dL (3.4-5.0); Calcium 7.7 mg/dL (8.5-10.1); Magnesium 1.8 mg/dL (1.6-2.6); Potassium 3.8 mmol/L (3.5-5.1)
[2018-04-30 09:43] LABS: BUN/Creatinine Ratio 21.1; Bilirubin, Total 0.3 mg/dL (0.2-1.0); Phosphorus 2.1 mg/dL (2.5-4.90); Total Protein 4.7 g/dL (6.4-8.2)
[2018-04-30] MEDS: FLORASTOR (S. BOULARDII) 250 MG CAP PO SCH (10:00)
[2018-04-30] MEDS: METOPROLOL TARTRATE 25 MG TAB PO SCH ×2 (10:00→21:41)
[2018-04-30] MEDS: LINEZOLID 600MG/300ML 300 ML IV SCH ×2 (10:15→21:40)
[2018-04-30] MEDS: PANTOPRAZOLE 40 MG/10 ML VIAL IV SCH (10:15)
[2018-04-30] MEDS: ENOXAPARIN SOD 40 MG/0.4 ML SYRINGE SC SCH (10:15)
[2018-04-30] MEDS: SODIUM CHLOR 0.9% PF (SALINE LOCK) 10ML VIAL/SYR IV SCH ×2 (10:16→21:41)
--- NOTE | 2018-04-30 11:47 | NUR ---
Hospitalist at bedside MD Jasso at bedside, aware of patient status including resp status. Awaiting new orders. Cont care
--- NOTE | 2018-04-30 11:51 | NUR ---
Respiratory note: PTS BS ARE COARSE. NTS AFTER NEBULIZER TX. NTS SUCTIONED MODERATE, THIN, CLOUDY SECRETIONS.
--- NOTE | 2018-04-30 11:59 | NUR ---
Nutrition Consult and Follow-up Notes Wt.: 80.7 kg based on bed scale today. Pt's on oxygen via nasal cannula, with PT at bedside for PROM therapy, no immediate family at bedside during rounds this morning. Pt's currently NPO, off from EN support, currently on Clinimix @ 42 ml/hr providing 510 kcal, 340 NPCs and 42.5 gms pro. Pt with inadequate PN support d/t low initiation rate delivery of diluted formula aeb current PN infusion meets 27% to 33% of est caloric needs and 46% to 55% of est protein needs. Noted pt's to receive tonight TPN @ 50 ml/hr to provide 1460 kcal, 60 gms proteins, 1220 NPCs and 14% Fat. Est. Needs: 1550 kcal to 1900 kcal (20-25 kcal/kgBW), 77 gms to 92 gms pro (1.0-1.2 gms/kgBW). Will continue to monitor pertinent labs and reassess nutrient need prn Labs: Gluc 152 H, Ca 7.7 L, Phos 2.1 L, AST 58 H, ALT 152 H, Tpro 4.7 L, Alb 1.9 L, Prealb 26.0 wnl, Trig 179 H Skin: Taz scale 14, mod risk, redness on Left hip per fastener technologist. GI: Pt had 100 ml stool output this morning per fastener technologist. PES: Partially resolved: Increased nutrient needs r/t current chronic medical condition aeb intubated, sedated, NPO. Altered nutrition related lab values r/t current/chronic medical condition aeb hyperglycemia, hyponatremia, hyperchloremia, elev. renal labs, HbA1c, hypocalcemia Will continue to monitor NPO status, PN tolerance, skin status, pertinent labs and weight trend. F/u in 2 to 3 days. Rec.: 1.) If still NPO with PN support, consider gradual increase on calories and protein to meet at least 75% of est nutrient needs. 2.) Advance gradually to oral diet (per ST's diet texture recommendation) or consider to resume EN support with formula choice of Vital High Protein @ 75 ml/hr goal rate as tolerated when medically appropriate. 3.) Refer to CDE/RD for further nutrition education and weight monitoring upon discharged. 4.) Continue current plan of care. Thank you for this consult.
[2018-04-30] MEDS ORDERED: SODIUM PHOSP 20MEQ(15MMOL) IN NS 100 ML IV ONE (12:00)
[2018-04-30] MEDS: LEVOFLOXACIN 750MG 150 ML IV SCH (12:46)
[2018-04-30 13:00] VITALS: BP 136/68
[2018-04-30] MEDS ORDERED: MAGNESIUM SULFATE 1GM/100ML 100 ML IV ONE (13:30)
[2018-04-30 17:00] VITALS: BP 155/72
[2018-04-30] MEDS: FLUCONAZOLE 200MG/100ML 100 ML IV SCH ×2 (17:16→18:20)
--- NOTE | 2018-04-30 18:20 | NUR ---
Respiratory note: PT NT SUCTIONED AT THIS TIME W/O INCIDENT DUE TO AUDIBLE COARSE BREATH SOUNDS. SUCTIONED LARGE THICK COPIOUS AMOUNT OF WHITE SECRETIONS.
[2018-04-30] MEDS: CLINIMIX PER PHARMACY IV NR (19:49)
[2018-04-30] MEDS ORDERED: TPN PER PHARMACY IV NR ×10 (20:00)
[2018-04-30 21:43] VITALS: BP 155/72
[2018-04-30 22:00] VITALS: BP 171/77
[2018-05-01] MEDS: ALBUTEROL SULF 2.5 MG/0.5ML(0.5%) NEB SOLN NEB SCH ×4 (00:04→18:58)
--- NOTE | 2018-05-01 00:04 | NUR ---
Respiratory note: NT SUCTIONED PT W/O INCIDENT AT THIS TIME. SUCTIONED OUT LARGE THICK COPIOUS WHITE/PALE YELLOW SECRETIONS.
[2018-05-01 05:00] VITALS: BP 145/73
[2018-05-01] MEDS: InsuLIN REG 1unit/0.01ml Soln (100units/ml) SC SCH ×3 (06:00→18:00)
[2018-05-01] MEDS: SOD CHL 0.45% WITH 20MEQ KCL 1,000 ML IV SCH (06:10)
[2018-05-01] MEDS: ACCU-CHEK COMFORT CURVE STRIP VI SCH ×3 (06:14→18:15)
[2018-05-01 06:21] LABS: Potassium 3.3 mmol/L (3.5-5.1)
[2018-05-01 06:31] LABS: Albumin 1.9 g/dL (3.4-5.0); BUN/Creatinine Ratio 21.5; Bilirubin, Total 0.3 mg/dL (0.2-1.0); Calcium 8.1 mg/dL (8.5-10.1); Magnesium 2.3 mg/dL (1.6-2.6); Phosphorus 2.5 mg/dL (2.5-4.90); Total Protein 5.4 g/dL (6.4-8.2)
[2018-05-01 08:21] VITALS: BP 160/78
[2018-05-01] MEDS ORDERED: POTASSIUM PHOSPHATE 44 MEQ in D5W 5% 250 ML IV ONE (09:00)
[2018-05-01] MEDS: METOPROLOL TARTRATE 25 MG TAB PO SCH ×2 (10:00→22:00)
[2018-05-01] MEDS: FLORASTOR (S. BOULARDII) 250 MG CAP PO SCH (10:00)
--- NOTE | 2018-05-01 10:15 | NUR ---
Mouth care provided pt tolerated well. Will cont care
[2018-05-01] MEDS: PANTOPRAZOLE 40 MG/10 ML VIAL IV SCH (10:33)
[2018-05-01] MEDS: SODIUM CHLOR 0.9% PF (SALINE LOCK) 10ML VIAL/SYR IV SCH ×2 (10:33→22:00)
[2018-05-01] MEDS: ENOXAPARIN SOD 40 MG/0.4 ML SYRINGE SC SCH (10:34)
[2018-05-01] MEDS: LINEZOLID 600MG/300ML 300 ML IV SCH ×2 (10:34→22:32)
[2018-05-01] MEDS: hydrALAZINE HCL 20 MG/ML VL IV PRN (11:03)
[2018-05-01] MEDS: LEVOFLOXACIN 750MG 150 ML IV SCH (12:20)
[2018-05-01 12:45] VITALS: BP 145/61
--- NOTE | 2018-05-01 14:03 | NUR ---
Spoke to MD MD Jasso aware of patients status, reviewed medical records sent from [facility]. New orders received for Lasix 20mEq IV once.l Will medicate as ordered. Cont care
[2018-05-01] MEDS: FLUCONAZOLE 200MG/100ML 100 ML IV SCH ×2 (16:19→17:30)
--- NOTE | 2018-05-01 16:30 | NUR ---
WOUND CARE NOTE: Weekly reevaluation by wound care team. Wound care team following patient due to lowe Taz score. Last Taz score is 14. Patient still with mild intertriginous rash to perineum/perianal skin. Nursing continues to apply ZGUARD BID/PRN. No new wounds noted. Nursing to continue with previous skin/wound care orders; wound care team to continue to follow while Taz is <18.
[2018-05-01 17:00] VITALS: BP 141/68
--- NOTE | 2018-05-01 18:53 | NUR ---
Patient care endorsed endorsed care to Waqas mccarthy. Pt laying down semi fowlers. Aspiration precs in place. No acute distress or sob noted. Bed alarm on
[2018-05-01] MEDS ORDERED: FUROSEMIDE 20 MG/2 ML VIAL IV ONE (19:00)
[2018-05-01] MEDS ORDERED: TPN PER PHARMACY IV NR ×10 (20:00)
[2018-05-01 22:00] VITALS: BP 142/70
[2018-05-02] MEDS: ALBUTEROL SULF 2.5 MG/0.5ML(0.5%) NEB SOLN NEB SCH ×4 (00:17→19:32)
--- NOTE | 2018-05-02 00:27 | NUR ---
Respiratory note: PT NT SUCTIONED W/O INCIDENT AFTER HER SCHEDULED MED NEB TX AT 0027. SUCTIONED LARGE COPIOUS AMOUNT OF THICK WHITE FROTHY SECRETIONS.
[2018-05-02] MEDS: ACCU-CHEK COMFORT CURVE STRIP VI SCH ×4 (00:30→18:13)
[2018-05-02] MEDS: InsuLIN REG 1unit/0.01ml Soln (100units/ml) SC SCH ×4 (00:38→18:13)
[2018-05-02 04:34] VITALS: BP 140/72
[2018-05-02 06:16] LABS: Basophils # (auto) 0 uL; Basophils % (auto) 0.5 % (0.0-2.0); Eosinophils # (auto) 0.1 uL; Eosinophils % (auto) 1.1 % (0.0-7.0); Hematocrit 31.8 % (36.0-46.0); Hemoglobin 10.8 g/dL (12.2-16.2); Lymphocytes # (auto) 1.4 uL; Lymphocytes % (auto) 20.3 % (10.0-50.0); Mean Corpuscular Hemoglobin 30.8 pg (28.0-32.0); Mean Corpuscular Volume 90.5 fL (80.0-100.0); Monocytes # (auto) 0.4 uL; Monocytes % (auto) 5.9 % (0.0-12.0); Neutrophils # (auto) 5.2 uL; Neutrophils % (auto) 72.2 % (37.0-80.0); Nucleated Red Blood Cells % 0.1 %; Platelet Count (auto) 112 10^3/uL (140-450); Red Blood Cells 3.51 10^6/uL (4.0-5.20); Red Cell Distribution Width 13.6 % (11.8-14.3); White Blood Cell 7.1 10^3/uL (4.4-10.8)
[2018-05-02 06:42] LABS: Calcium 8.1 mg/dL (8.5-10.1); Magnesium 2.1 mg/dL (1.6-2.6); Potassium 3.9 mmol/L (3.5-5.1)
[2018-05-02 06:46] LABS: BUN/Creatinine Ratio 23.8; Bilirubin, Total 0.3 mg/dL (0.2-1.0); Phosphorus 3.9 mg/dL (2.5-4.90); Total Protein 5.5 g/dL (6.4-8.2)
--- NOTE | 2018-05-02 08:00 | NUR ---
Respiratory note: AFTER MEDNEB TX GIVEN, NT SUCTIONED PT WITH ASSOCIATE CHEMIST AT BEDSIDE. BREATH SOUNDS COARSE CRACKLES/RHONCHI. SUCTIONED COPIOUS THICK WHITE/YELLOW SECRETIONS. POST-TX HR 85, RR 18, POX 100%.
[2018-05-02 09:00] VITALS: BP 155/72
[2018-05-02] MEDS: METOPROLOL TARTRATE 25 MG TAB PO SCH ×2 (10:00→21:55)
[2018-05-02] MEDS: FLORASTOR (S. BOULARDII) 250 MG CAP PO SCH (10:00)
[2018-05-02] MEDS ORDERED: FUROSEMIDE 20 MG/2 ML VIAL IV ONE (11:00)
[2018-05-02] MEDS ORDERED: POTASSIUM CHL 20MEQ/100ML 100 ML IV ONE (11:15)
[2018-05-02] MEDS: PANTOPRAZOLE 40 MG/10 ML VIAL IV SCH (11:36)
[2018-05-02] MEDS: LINEZOLID 600MG/300ML 300 ML IV SCH ×2 (11:36→21:55)
[2018-05-02] MEDS: SODIUM CHLOR 0.9% PF (SALINE LOCK) 10ML VIAL/SYR IV SCH ×2 (11:36→21:56)
--- NOTE | 2018-05-02 11:36 | NUR ---
Respiratory note: NT SUCTIONED PT POST-MEDNEB TX WITH RN AT BEDSIDE. BREATH SOUNDS COARSE CRACKLES/RHONCHI THROUGHOUT. SUCTIONED LARGE AMOUNT THICK YELLOW/BLOOD-TINGED SECRETIONS. HR 91, RR 16, POX 100% ON 3L NC. NO S/S OF RESPIRATORY DISTRESS.
[2018-05-02] MEDS: LEVOFLOXACIN 750MG 150 ML IV SCH (11:38)
[2018-05-02 13:00] VITALS: BP 156/99
--- NOTE | 2018-05-02 14:10 | NUR ---
Nutrition Follow-up Notes Wt.: 81.7 kg based on bed scale today. Pt's on oxygen via nasal cannula, asleep, no immediate family member at bedside when rounded this morning. Pt failed swallow eval by ST, currently NPO, on TPN @ 60 ml/hr providing 1600 kcal, 1320 NPCs, 70 gms pro and 19% Fat. Pt with adequate PN support d/t mod initiation rate delivery of concentrated formula aeb current PN infusion meets 84% to 103% of est caloric needs and 76% to 91% of est protein needs. Noted pt's to receive tonight TPN @ 67 ml/hr to provide 1740 kcal, 70 gms proteins, 1420 NPCs and 23% Fat. Est. Needs: 1550 kcal to 1900 kcal (20-25 kcal/kgBW), 77 gms to 92 gms pro (1.0-1.2 gms/kgBW). Will continue to monitor pertinent labs and reassess nutrient need prn Labs: Gluc 150 H, BUN 19 H, Ca 8.1 L, ALT 88 H,Tpro 5.5 L, Alb 2.0 L, Prealb 26.0 wnl, Trig 179 H Skin: Taz scale 14, mod risk, redness on Left hip per electrical and radio mechanic. Pls refer to furniture upholsterer's notes yesterday for further details. GI: Pt had 100 ml stool output this morning per electrical and radio mechanic. PES: Partially resolved: Increased nutrient needs r/t current chronic medical condition aeb intubated, sedated, NPO. Altered nutrition related lab values r/t current/chronic medical condition aeb hyperglycemia, hyponatremia, hyperchloremia, elev. renal labs, HbA1c, hypocalcemia Will continue to monitor NPO status, PN tolerance, skin status, pertinent labs and weight trend. F/u in 2 to 3 days. Rec.: 1.) If still NPO, continue PN support that meets at least 75% of est nutrient needs. 2.) Advance gradually to oral diet (per ST's diet texture recommendation) or consider to resume EN support with formula choice of Vital High Protein @ 75 ml/hr goal rate as tolerated when medically appropriate. 3.) Refer to CDE/RD for further nutrition education and weight monitoring upon discharged. 4.) Continue current plan of care.
[2018-05-02 16:39] VITALS: BP 150/75
[2018-05-02] MEDS: FLUCONAZOLE 200MG/100ML 100 ML IV SCH ×2 (17:17→18:54)
--- NOTE | 2018-05-02 19:15 | NUR ---
Opening Note Received report from day shift RN. Patient is awake. Patient is aphasic. Patient has a Car catheter in place, patent and draining light yeny colored urine. Patient has a rectal tube in place. Patient is on 4L NC. Patient is on TPN at 67mls/hr. Patient has a right upper picc line, and a right IJ. No signs or symptoms of distress noted at this time. Reviewed plan of care, patient unable to verbalized understanding. Bed in lowest and locked position, call light within reach. Will continue to monitor Q1 hour and PRN.
--- NOTE | 2018-05-02 19:32 | NUR ---
Respiratory note: NTS PT RIGHT NARE FOR LARGE AMOUNT OF WHITE/BLOOD TINGED THICK SECRETIONS. B/S REMAIN RHONCHI POST SXD. SPO2 IS 99%. RN AWARE OF NTS.
[2018-05-02] MEDS ORDERED: TPN PER PHARMACY IV NR ×11 (20:00)
[2018-05-02 22:00] VITALS: BP 137/75
--- NOTE | 2018-05-02 22:00 | NUR ---
2200 PO medications held Patient unable to swallow scheduled PO medications at this time.
[2018-05-03] MEDS: ALBUTEROL SULF 2.5 MG/0.5ML(0.5%) NEB SOLN NEB SCH ×4 (00:29→18:25)
[2018-05-03] MEDS: ACCU-CHEK COMFORT CURVE STRIP VI SCH ×4 (02:39→17:48)
[2018-05-03] MEDS: InsuLIN REG 1unit/0.01ml Soln (100units/ml) SC SCH ×4 (02:40→17:48)
[2018-05-03 05:00] VITALS: BP 140/75
--- NOTE | 2018-05-03 07:10 | NUR ---
Closing Note Report given to day shift RN. No signs or symptoms of distress noted at this time.
--- NOTE | 2018-05-03 07:17 | NUR ---
Respiratory note: NT SUCTIONED PT POST-MEDNEB TX, TOLERATED WELL. SUCTIONED LARGE AMOUNT OF THICK PALE YELLOW SECRETIONS. POST-SUCTION HR 96, RR 16, POX 100% ON 4L NC AND BREATH SOUNDS EXPIRATORY COARSE CRACKLES/RHONCHI. NO S/S OF RESPIRATORY DISTRESS. WILL RETURN FOR NEXT SCHEDULED TX.
[2018-05-03 09:00] VITALS: BP 140/69
[2018-05-03 09:39] LABS: Albumin 1.9 g/dL (3.4-5.0); BUN/Creatinine Ratio 27.4; Magnesium 2.1 mg/dL (1.6-2.6); Potassium 4.5 mmol/L (3.5-5.1)
[2018-05-03 09:42] LABS: Bilirubin, Total 0.5 mg/dL (0.2-1.0); Phosphorus 2.9 mg/dL (2.5-4.90); Total Protein 5.3 g/dL (6.4-8.2)
--- NOTE | 2018-05-03 10:19 | NUR ---
CALL PLACED TO HOME HEALTH AGENCY HOME HEALTH AGENCY LISTED IN PT'S CHART WAS CALLED TO GAIN INFORMATION ABOUT PT'S PERSONAL CONTACTS IN AN ATTEMPT TO UPDATE THE PT'S CODE STATUS, [facility] STATES THAT THE PT LIVES AT THE HOME ON FILE WHICH IS THE HOME OF MR. JUARES WHO CAN BE REACHED AT [phone], THE HOME IS OWNED AND OPERATED A BOARD AND CARE BY MR. DONOVAN, UNSURE IF THIS PT IS HIS ONLY CLIENT, PER [facility] STAFF, APS IS WORKING TOWARDS MR. JUARES GAINING CONSERVATORSHIP OF THIS PT, AT THIS TIME THIS WAS ALL THE INFORMATION THAT WAS PROVIDED
--- NOTE | 2018-05-03 12:18 | NUR ---
Respiratory note: PT WAS NT SUCTIONED AFTER MEDNEB-TX. POST-SUCTION PT HR 110, RR 20, POX 98% ON 4L NC. BREATH SOUNDS STILL EXPIRATORY COARSE CRACKLES/RHONCHI. NO S/S OF RESPIRATORY DISTRESS. WILL ENDORSE PT CARE TO NOC RT.
[2018-05-03] MEDS: SODIUM CHLOR 0.9% PF (SALINE LOCK) 10ML VIAL/SYR IV SCH ×2 (12:29→21:26)
[2018-05-03] MEDS: METOPROLOL TARTRATE 25 MG TAB PO SCH ×2 (12:29→21:44)
[2018-05-03] MEDS: PANTOPRAZOLE 40 MG/10 ML VIAL IV SCH (12:29)
[2018-05-03] MEDS: ENOXAPARIN SOD 40 MG/0.4 ML SYRINGE SC SCH (12:30)
[2018-05-03] MEDS: DOXYCYCLINE 100MG/250ML 250 ML IV SCH ×2 (12:41→21:26)
[2018-05-03 13:00] VITALS: BP 146/102
--- NOTE | 2018-05-03 13:05 | NUR ---
MD ROUNDS DR. CHRISTIAN AT BEDSIDE, ORAL CARE ORDERED FOR PATIENT, WILL IMPLEMENT NEW ORDERS
[2018-05-03] MEDS ORDERED: cloNIDine 0.1 mg/24hr 7 DAY PATCH TD SCH (13:15)
[2018-05-03] MEDS ORDERED: FUROSEMIDE 40 MG/4 ML VIAL IV ONE (13:15)
[2018-05-03] MEDS ORDERED: cloNIDine 0.1 mg/24hr 7 DAY PATCH TD ONE (13:15)
[2018-05-03 13:30] VITALS: BP 148/88
[2018-05-03 17:00] VITALS: BP 129/74
[2018-05-03] MEDS: ACETYLCYSTEINE 10 %(100MG/ML) SOL 4ML NEB SCH (18:26)
--- NOTE | 2018-05-03 18:26 | NUR ---
Respiratory note: AT BEDSIDE FOR MED NEB TX, PT FAIRLY TOLERATING TX VIA MASK. RT NAME AND PAGER ASSIGNMENT WRITTEN ON PTS ROOM BOARD. WILL CONTINUE TO MONITOR.
--- NOTE | 2018-05-03 18:37 | NUR ---
Respiratory note: SUCTION COLLECTION CANISTER FULL. CHANGED AT THIS TIME, CANISTER DISCARDED IN BIOHAZARD WASTE BIN. NTS SXD VIA RIGHT NARE W/14F SX CATHETER USING STERILE TECHNIQUE, SXD FOR THICK BEAL/CREAM/BLOODY SECRETIONS. SXD WITHOUT INCIDENT NOTED. GAG INTACT SEEN WITH SX. RT NAME AND PAGER ASSIGNMENT ON PTS ROOM BOARD WILL CONTINUE TO MONITOR. PT IS NON-VERBAL. RESPONDS TO TACTILE STIMULI.
[2018-05-03] MEDS: NYSTATIN (MOUTH-THROAT) 500,000 UNITS/5 ML SUSP MT SCH ×2 (18:53→21:26)
--- NOTE | 2018-05-03 19:20 | NUR ---
Opening Note Received report from day shift RN. Patient is resting in bed with eyes closed. Patient easy to wake by calling night and light shaking. Patient is aphasic. No signs or symptoms of distress noted at this time. Patient has a Car catheter in place, patent and draining dark yellow colored urine. Patient has a rectal tube in place. Patient is on 4L NC. Patient is on TPN at 67mls/hr. Patient has a right upper picc line, and a right IJ. Reviewed plan of care, patient unable to verbalized understanding. Bed in lowest and locked position, call light within reach. Will continue to monitor Q1 hour and PRN.
[2018-05-03] MEDS ORDERED: TPN PER PHARMACY IV NR ×10 (20:00)
--- NOTE | 2018-05-03 21:15 | NUR ---
Wound photo taken Patient has a small skin tear on the right buttocks. Photo taken. Area was cleaned, z-guard applied, covered with Optifoam.
[2018-05-03] MEDS: CHLORHEXIDINE 0.12% ORAL rinse 473ML MT SCH (22:00)
[2018-05-03 22:06] VITALS: BP 144/71
[2018-05-04] MEDS: ACETYLCYSTEINE 10 %(100MG/ML) SOL 4ML NEB SCH ×4 (00:14→19:19)
[2018-05-04] MEDS: ALBUTEROL SULF 2.5 MG/0.5ML(0.5%) NEB SOLN NEB SCH ×4 (00:14→19:19)
--- NOTE | 2018-05-04 00:14 | NUR ---
Respiratory note: AT BEDSIDE FOR MED NEB TX. PT TOLERATING MED NEB TX WELL. POX 94% ON 4LPM NC, HR 105. BS ARE COURSE CRACKLES T/O. PT IS AUDIBLY CONGESTED AND IS IN NEED OF SUCTION. UNABLE TO NTS SXD DUE INCREASE RESISTANCE WHEN ATTEMPTING TO PASS THROUGH NARES ATTEMPTED ONLY ONCE THROUGH EACH NARE. 14 [address] SX CATHETER PASSED DOWN ORAL CAVITY USING STERILE TECHNIQUE AND PERFORMED WITHOUT INCIDENT NOTED. SXD FOR COPIOUS AMOUNT OF CREAMY BEAL/ PINK TINGE. PT HAS IMPROVED BS, AND SATS. NOW AT 98% ON 4LPM NC .
[2018-05-04] MEDS: InsuLIN REG 1unit/0.01ml Soln (100units/ml) SC SCH ×4 (00:50→17:22)
[2018-05-04] MEDS: ACCU-CHEK COMFORT CURVE STRIP VI SCH ×4 (00:50→17:22)
[2018-05-04 02:46] VITALS: BP 144/71
[2018-05-04 05:12] VITALS: BP 114/67
[2018-05-04] MEDS: NYSTATIN (MOUTH-THROAT) 500,000 UNITS/5 ML SUSP MT SCH ×4 (05:48→22:00)
[2018-05-04 06:06] LABS: Albumin 1.9 g/dL (3.4-5.0); BUN/Creatinine Ratio 33.8; Bilirubin, Total 0.4 mg/dL (0.2-1.0); Calcium 8.2 mg/dL (8.5-10.1); Magnesium 2.1 mg/dL (1.6-2.6); Phosphorus 3.4 mg/dL (2.5-4.90); Total Protein 5.3 g/dL (6.4-8.2)
--- NOTE | 2018-05-04 07:18 | NUR ---
Opening Shift Note Assumed care of patient, awake and alert. No S/S of distress/SOB or pain. Instructed on POC and to call for assist PRN, will continue to monitor for changes Q1hr and PRN.
--- NOTE | 2018-05-04 07:20 | NUR ---
Closing Note Report given to day shift RN. No signs or symptoms of distress noted at this time.
[2018-05-04 09:00] VITALS: BP 119/61
[2018-05-04] MEDS: SODIUM CHLOR 0.9% PF (SALINE LOCK) 10ML VIAL/SYR IV SCH ×2 (10:00→22:33)
[2018-05-04] MEDS: CHLORHEXIDINE 0.12% ORAL rinse 473ML MT SCH ×2 (10:00→22:00)
[2018-05-04] MEDS: METOPROLOL TARTRATE 25 MG TAB PO SCH ×2 (10:00→22:00)
[2018-05-04] MEDS: DOXYCYCLINE 100MG/250ML 250 ML IV SCH ×2 (10:37→22:33)
[2018-05-04] MEDS: ENOXAPARIN SOD 40 MG/0.4 ML SYRINGE SC SCH (10:37)
[2018-05-04] MEDS: PANTOPRAZOLE 40 MG/10 ML VIAL IV SCH (10:37)
--- NOTE | 2018-05-04 11:00 | NUR ---
WOUND CARE NOTE: New wound care request received regarding skin tear to Rt buttock that are noted by bedside nurse upon assessment. Bedside nurse took photograph of patient's wound upon admission for reference. Patient is resting in bed in Rm [id number], She's awake and aphasic. Bedside nurse and aide at bedside cleaning patient and changing linen. Noted 1x1cm open partial thickness skin tear to patient's R gluteal with pink, blanchable surrounding skin. Patient is still has rectal tube in placed and receiving Cavilon BID for skin protectant moisture management. Applied Z Guard cream to R gluteal skin tear and covered with Opti foam gentle dressing. Patient tolerated well. ALRIIO Cerna at bedside. RECOMMENDATION:Continue with BID/PRN cleaning and application of Cavilon to perineum, Z GUARD to R gluteal skin tear, continue with skin/wound plan of care, continue monitoring by wound care while patient is hospitalized. Addendum: 05/04/18 at 1552 by Madeleine Vargas RN Amended: Links added.
--- NOTE | 2018-05-04 11:49 | NUR ---
Respiratory note: PT NT SUCTIONED X 2 FOR A COPIOUS AMOUNT OF THIN CLEAR/WHITE SECRETIONS. STRONG COUGH NOTED. PT APPEARS TO BE BREATHING COMFORTABLY ON 2L. POX 98%.
--- NOTE | 2018-05-04 11:53 | NUR ---
Nutrition Follow-up Notes Wt.: 73.0 kg Pt's on oxygen via nasal cannula, asleep, no immediate family member at bedside when rounded this morning. Pt failed swallow eval by ST, currently NPO, on TPN @ 65 ml/hr providing 1640 kcal, 1320 NPCs, 80 gms pro. Pt with adequate PN support d/t mod initiation rate delivery of concentrated formula aeb current PN infusion meets 86% to 105% of est caloric needs and 86% to 103% of est protein needs. Est. Needs: 1550 kcal to 1900 kcal (20-25 kcal/kgBW), 77 gms to 92 gms pro (1.0-1.2 gms/kgBW). Will continue to monitor pertinent labs and reassess nutrient need prn Labs: BUN 27 H, CA 8.2 L, ALB 1.9 L, TG 181 H, GLU 155 H Skin: Taz scale 14, mod risk, redness on Left hip per conveyor line bakery worker. Pls refer to scientific manager's notes yesterday for further details. GI: Pt had 100 ml stool output this morning per conveyor line bakery worker. PES: Partially resolved: Increased nutrient needs r/t current chronic medical condition aeb intubated, sedated, NPO. Altered nutrition related lab values r/t current/chronic medical condition aeb hyperglycemia, hyponatremia, hyperchloremia, elev. renal labs, HbA1c, hypocalcemia Will continue to monitor NPO status, PN tolerance, skin status, pertinent labs and weight trend. F/u in 2 to 3 days. Rec.: 1.) If still NPO, continue PN support that meets at least 75% of est nutrient needs. 2.) Advance gradually to oral diet (per ST's diet texture recommendation) or consider to resume EN support with formula choice of Vital High Protein @ 75 ml/hr goal rate as tolerated when medically appropriate. 3.) Refer to CDE/RD for further nutrition education and weight monitoring upon discharged. 4.) Continue current plan of care.
[2018-05-04 12:57] VITALS: BP 130/75
--- NOTE | 2018-05-04 14:00 | NUR ---
Dr. Dyer aware patient's HR is 115-119 sustained. Patient is asymptomatic. Per MD continue to monitor, no new orders received.
[2018-05-04 17:00] VITALS: BP 126/74
--- NOTE | 2018-05-04 19:25 | NUR ---
Change of shift given to mini shifter RN. No distress noted.
--- NOTE | 2018-05-04 19:30 | NUR ---
Opening Shift Note Assumed care of patient, non verbal, total care. Turning q2 with pillows. .IJ patent and infusing TPN per orders. PICC line II lumen patent and infusing fluids/antibiotics per orders. No S/S of distress. Suctioning thick yellow secretions from mouth often. HOB at 60 degrees. Rectal tube and harvey in place and draining accordingly. SCD's on bilateral lower extremities.
[2018-05-04] MEDS ORDERED: TPN PER PHARMACY IV NR ×10 (20:00)
[2018-05-04 21:40] VITALS: BP 140/70
--- NOTE | 2018-05-04 22:00 | NUR ---
Unable to give PO meds due to inability to swallow. Suctioning often and swabbing mouth and tongue. Thick yellow secretions
[2018-05-05] MEDS: ACCU-CHEK COMFORT CURVE STRIP VI SCH ×5 (00:12→17:53)
[2018-05-05] MEDS: InsuLIN REG 1unit/0.01ml Soln (100units/ml) SC SCH ×4 (00:12→17:53)
[2018-05-05] MEDS: ACETYLCYSTEINE 10 %(100MG/ML) SOL 4ML NEB SCH ×4 (00:19→19:42)
[2018-05-05] MEDS: ALBUTEROL SULF 2.5 MG/0.5ML(0.5%) NEB SOLN NEB SCH ×4 (00:19→19:43)
--- NOTE | 2018-05-05 00:26 | NUR ---
PT PRESENTS WITH VERY COARSE BS. PT WAS NTS FOR LARGE AMOUNT OF SEMI THICK YELLOW SECRETIONS. PT TOLERATED WELL W/O INCIDENT.
--- NOTE | 2018-05-05 04:00 | NUR ---
Mittens placed on pat due to continuous scratching at chest anf removing tele leads. No redness noted. Cleansed skin and applied new patches x3.
[2018-05-05 05:23] VITALS: BP 134/60
[2018-05-05] MEDS: NYSTATIN (MOUTH-THROAT) 500,000 UNITS/5 ML SUSP MT SCH ×4 (05:39→22:00)
[2018-05-05 06:04] LABS: Calcium 8.4 mg/dL (8.5-10.1); Magnesium 2.2 mg/dL (1.6-2.6); Potassium 4.2 mmol/L (3.5-5.1)
[2018-05-05 06:10] LABS: Bilirubin, Total 0.5 mg/dL (0.2-1.0); Phosphorus 3.5 mg/dL (2.5-4.90); Total Protein 5.6 g/dL (6.4-8.2)
--- NOTE | 2018-05-05 06:10 | NUR ---
Pre TX NTS PT with large return of thick white secretions.
--- NOTE | 2018-05-05 07:02 | NUR ---
Opening Shift Note Assumed care of patient, asleep. No S/S of distress/SOB or pain. Instructed on POC and to call for assist PRN, will continue to monitor for changes Q1hr and PRN.
[2018-05-05 09:53] VITALS: BP 135/58
[2018-05-05] MEDS: CHLORHEXIDINE 0.12% ORAL rinse 473ML MT SCH ×2 (10:00→22:00)
[2018-05-05] MEDS: METOPROLOL TARTRATE 25 MG TAB PO SCH ×2 (10:00→22:00)
[2018-05-05] MEDS: SODIUM CHLOR 0.9% PF (SALINE LOCK) 10ML VIAL/SYR IV SCH (10:00)
[2018-05-05] MEDS: ENOXAPARIN SOD 40 MG/0.4 ML SYRINGE SC SCH (10:20)
[2018-05-05] MEDS: PANTOPRAZOLE 40 MG/10 ML VIAL IV SCH (10:20)
[2018-05-05] MEDS: DOXYCYCLINE 100MG/250ML 250 ML IV SCH (10:20)
--- NOTE | 2018-05-05 11:20 | NUR ---
Rt note: attempted to give scheduled TX. Family members cleaning PT ask if I can return. Addendum: 05/05/18 at 1225 by KALYAN KUMAR RT Wrong patient
--- NOTE | 2018-05-05 11:38 | NUR ---
Rt note attempted to give resp.TX physical therapy now working with patient. Addendum: 05/05/18 at 1225 by KALYAN KUMAR RT Wrong patient
--- NOTE | 2018-05-05 12:18 | NUR ---
RT note: NTS PT with large return of frothy white secretions. Sx oral cavity with large return of thin white secretions.
--- NOTE | 2018-05-05 12:35 | NUR ---
NTS patient with large amount of frothy white secretions. Sx oral cavity
[2018-05-05 13:00] VITALS: BP 143/66
[2018-05-05 17:30] VITALS: BP 130/72
--- NOTE | 2018-05-05 19:08 | NUR ---
Change of shift given to overnight houseperson RN. No distress noted.
--- NOTE | 2018-05-05 19:43 | NUR ---
RT NOTE NTS PT with moderate return of thin white secretions. no return with oral suction.
[2018-05-05] MEDS ORDERED: TPN PER PHARMACY IV NR ×10 (20:00)
[2018-05-05 21:54] VITALS: BP 135/77
[2018-05-06] MEDS: ALBUTEROL SULF 2.5 MG/0.5ML(0.5%) NEB SOLN NEB SCH ×4 (00:41→18:59)
[2018-05-06] MEDS: ACETYLCYSTEINE 10 %(100MG/ML) SOL 4ML NEB SCH ×4 (00:41→18:59)
--- NOTE | 2018-05-06 00:53 | NUR ---
RT NOTE PT SUCTIONED FOR ORAL SECRETIONS, RETURNED A MODERATE AMOUNT OF THICK CLEAR SECRETIONS. NTS RETURNED MODERATE AMOUNT OF THICK CLEAR/WHITE SECRETIONS. PT DOES NOT HAVE A STRONG ENOUGH COUGH TO CLEAR SECRETIONS AND SHOULD BE MOVED TO A HIGHER LEVEL OF CARE. PT ONLY RESPONDS TO TACTILE STIMULI, BUT DOESN'T RESPOND TO VERBAL.
[2018-05-06] MEDS: InsuLIN REG 1unit/0.01ml Soln (100units/ml) SC SCH ×4 (00:59→18:00)
[2018-05-06] MEDS: SODIUM CHLOR 0.9% PF (SALINE LOCK) 10ML VIAL/SYR IV SCH ×3 (01:03→22:11)
[2018-05-06] MEDS: DOXYCYCLINE 100MG/250ML 250 ML IV SCH ×3 (01:04→22:13)
[2018-05-06 05:10] VITALS: BP 133/85
[2018-05-06 05:52] LABS: Basophils # (auto) 0 uL; Basophils % (auto) 0.5 % (0.0-2.0); Eosinophils # (auto) 0.2 uL; Eosinophils % (auto) 2.5 % (0.0-7.0); Hematocrit 28.9 % (36.0-46.0); Hemoglobin 9.7 g/dL (12.2-16.2); Lymphocytes # (auto) 1.4 uL; Lymphocytes % (auto) 15.4 % (10.0-50.0); Mean Corpuscular Hemoglobin 30.7 pg (28.0-32.0); Mean Corpuscular Hgb Conc. 33.5 g/dL (32.0-36.0); Mean Corpuscular Volume 91.5 fL (80.0-100.0); Monocytes # (auto) 0.8 uL; Monocytes % (auto) 8.6 % (0.0-12.0); Neutrophils # (auto) 6.5 uL; Platelet Count (auto) 68 10^3/uL (140-450); Red Blood Cells 3.16 10^6/uL (4.0-5.20); Red Cell Distribution Width 13.5 % (11.8-14.3); White Blood Cell 8.9 10^3/uL (4.4-10.8)
[2018-05-06] MEDS: NYSTATIN (MOUTH-THROAT) 500,000 UNITS/5 ML SUSP MT SCH ×4 (06:00→21:09)
[2018-05-06 06:13] LABS: Calcium 7.4 mg/dL (8.5-10.1); Magnesium 2.1 mg/dL (1.6-2.6); Potassium 4.5 mmol/L (3.5-5.1)
[2018-05-06 06:19] LABS: Albumin 1.9 g/dL (3.4-5.0); BUN/Creatinine Ratio 44.3; Bilirubin, Total 0.5 mg/dL (0.2-1.0); Phosphorus 3.5 mg/dL (2.5-4.90); Total Protein 5.4 g/dL (6.4-8.2)
[2018-05-06] MEDS: ACCU-CHEK COMFORT CURVE STRIP VI SCH ×3 (06:30→18:00)
--- NOTE | 2018-05-06 06:51 | NUR ---
Respiratory note: NTS SUCTIONED SMALL, THIN, WHITE SECRETIONS. ORALLY SUCTIONED MODERATE WHITE SECRETIONS. BREAKDOWN NOTED ON SURFACE OF TONGUE. SKIN ON TONGUE APPEARS TO BE PEELING OFF AT THIS TIME. BRANCH CHIEF AT BEDSIDE RECORDS A TEMP 100.3. BS ARE COARSE PRE AND POST MED NEB TX AND SUCTION. PT IS NOT RESPONSIVE TO VERBAL COMMANDS AND MINIMAL GRIMACE AT NTS SUCTION. WILL SPEAK TO RT LEAD AND FITNESS AND WELLNESS COORDINATOR ABOUT MOVING PT CLOSER TO NURSES STATION.
--- NOTE | 2018-05-06 07:15 | NUR ---
Respiratory note: SPOKE TO ALIRIO BRAMBILA ABOUT TONGUE BREAKDOWN AND MOVING PT CLOSER TO NURSES STATION. ALIRIO BRAMBILA WILL TALK TO CHARGE NURSE TODAY ABOUT MOVING PT . RN WAS AWARE OF TONGUE STATUS. ALSO SPOKE TO RT LEAD RADHA ABOUT PT STATUS.WILL CONTINUE TO MONITOR PROGRESS.
--- NOTE | 2018-05-06 08:20 | NUR ---
Respiratory note: PT CARE ENDORSED TO RT LEAD RADHA.
[2018-05-06 09:39] VITALS: BP 149/66
[2018-05-06] MEDS: CHLORHEXIDINE 0.12% ORAL rinse 473ML MT SCH ×2 (09:59→21:09)
[2018-05-06] MEDS: METOPROLOL TARTRATE 25 MG TAB PO SCH ×2 (09:59→22:00)
[2018-05-06] MEDS: PANTOPRAZOLE 40 MG/10 ML VIAL IV SCH (09:59)
[2018-05-06] MEDS: ENOXAPARIN SOD 40 MG/0.4 ML SYRINGE SC SCH (10:00)
--- NOTE | 2018-05-06 11:34 | NUR ---
RT NOTE: NTS SUCTIONED PT AT THIS TIME, FOR MODERATE THIN WHITE SECRETIONS. ORALLY SUCTIONED MODERATE WHITE SECRETIONS. BREAKDOWN NOTED ON SURFACE OF TONGUE. SKIN ON TONGUE APPEARS TO BE PEELING OFF AT THIS TIME. RN AWARE OF THIS. BREATHING TX GIVEN AT THIS TIME. BREATH SOUNDS COURSE CRACKLES. SMALL GRIMACE WHEN PT WAS SUCTIONED. WILL CONTINUE TO MONITOR PT.
[2018-05-06 13:00] VITALS: BP 137/66
--- NOTE | 2018-05-06 14:00 | NUR ---
PICC DRESSING CHANGED
--- NOTE | 2018-05-06 14:08 | NUR ---
Spoke with Dr. Dyer regarding POC. Per , SS is working on hospice evaluation. MD aware of platelet level, do not administer lovenox.
[2018-05-06 17:13] VITALS: BP 122/57
--- NOTE | 2018-05-06 19:02 | NUR ---
Change of shift given to overnight stocker RN. No distress noted.
--- NOTE | 2018-05-06 19:30 | NUR ---
Opening Shift Note Assumed care of patient, awakens with painful stimuli. Suctioned patients mouth. Large amount of yellow secretions. HOB is up so as she doesnt aspirate. Hard time coughing up phlegm. No S/S of distress/SOB or pain. will continue to monitor for changes Q1hr and PRN.
[2018-05-06] MEDS ORDERED: TPN PER PHARMACY IV NR ×10 (20:00)
[2018-05-06 22:00] VITALS: BP 146/77
[2018-05-07] MEDS: ALBUTEROL SULF 2.5 MG/0.5ML(0.5%) NEB SOLN NEB SCH ×4 (00:36→18:24)
[2018-05-07] MEDS: ACETYLCYSTEINE 10 %(100MG/ML) SOL 4ML NEB SCH ×4 (00:36→18:24)
--- NOTE | 2018-05-07 00:44 | NUR ---
RT NOTE PT NTS SUCTION, RETURNED LARGE AMOUNT OF THICK WHITE SECRETIONS. PT STILL DOES NOT RESPOND TO VERBAL AND MINIMAL RESPONSE FROM TACTILE INTERACTION.
[2018-05-07 02:33] VITALS: BP 144/71
[2018-05-07 05:02] VITALS: BP 146/75
[2018-05-07 05:59] LABS: Potassium 4.5 mmol/L (3.5-5.1)
[2018-05-07] MEDS: InsuLIN REG 1unit/0.01ml Soln (100units/ml) SC SCH ×4 (06:00→18:14)
[2018-05-07] MEDS: ACCU-CHEK COMFORT CURVE STRIP VI SCH ×4 (06:00→18:05)
[2018-05-07] MEDS: NYSTATIN (MOUTH-THROAT) 500,000 UNITS/5 ML SUSP MT SCH ×4 (06:00→22:00)
[2018-05-07 06:07] LABS: BUN/Creatinine Ratio 47.9; Bilirubin, Total 0.4 mg/dL (0.2-1.0); Calcium 8.6 mg/dL (8.5-10.1); Magnesium 2.4 mg/dL (1.6-2.6); Phosphorus 3.6 mg/dL (2.5-4.90); Total Protein 5.9 g/dL (6.4-8.2)
--- NOTE | 2018-05-07 06:32 | NUR ---
Respiratory note: ORALLY SUCTIONED PT POST MED NEB TX. RECEIVED SMALL, THIN SECRETIONS. PT IS SLEEPING. RESPONDS TO TACTILE STIMULATION. TONGUE IS SHOWING SIGNS OF SKIN BREAKDOWN WILL INFORM RN OF FINDINGS. WILL SUGGEST MOVING PT CLOSER TO NURSES STATION.
--- NOTE | 2018-05-07 07:15 | NUR ---
Opening Shift Note Assumed care of patient, awakens with deep stimuli.no verbal; response, having hard time in coughing out phlegm,requires frequent Suctioning to patients mouth. Large amount of yellow pinkish thick secretions. HOB 45 degrees, preventing patient to aspirate. No S/S of distress/SOB or pain. will continue to monitor for changes Q1hr and PRN.
[2018-05-07 08:30] VITALS: BP 135/68
[2018-05-07] MEDS: PANTOPRAZOLE 40 MG/10 ML VIAL IV SCH (11:07)
[2018-05-07] MEDS: DOXYCYCLINE 100MG/250ML 250 ML IV SCH ×2 (11:07→22:26)
[2018-05-07] MEDS: CHLORHEXIDINE 0.12% ORAL rinse 473ML MT SCH ×2 (11:11→22:00)
[2018-05-07] MEDS: METOPROLOL TARTRATE 25 MG TAB PO SCH (11:11)
[2018-05-07] MEDS: SODIUM CHLOR 0.9% PF (SALINE LOCK) 10ML VIAL/SYR IV SCH ×2 (11:11→22:27)
--- NOTE | 2018-05-07 12:04 | NUR ---
Respiratory note: FOUND PT ON 3 L NC SPO2 100%. TITRATED O2 TO 2 L NC. PT TOLERATING CHANGE WELL.
--- NOTE | 2018-05-07 12:10 | NUR ---
Respiratory note: NTS POST MED NEB TX NOT INDICATED AT THIS TIME. PT BS PRE AND POST TX ARE CLEAR AND SLIGHTLY DIMINISHED. WILL CONTINUE TO MONITOR PT AND ASSES FOR NTS.
[2018-05-07 12:30] VITALS: BP 127/70
--- NOTE | 2018-05-07 12:43 | NUR ---
Nutrition Follow-up Notes Wt.: 80.6 kg Pt's on oxygen via nasal cannula, asleep, no immediate family member at bedside when rounded this morning. Pt failed swallow eval by ST, currently NPO, on TPN @ 65 ml/hr providing 1640 kcal, 1320 NPCs, 80 gms pro. Pt with adequate PN support d/t mod initiation rate delivery of concentrated formula aeb current PN infusion meets 86% to 105% of est caloric needs and 86% to 103% of est protein needs. Est. Needs: 1550 kcal to 1900 kcal (20-25 kcal/kgBW), 77 gms to 92 gms pro (1.0-1.2 gms/kgBW). Will continue to monitor pertinent labs and reassess nutrient need prn Labs: GLU 192 H, ALB 2.0 L, BUN 35 H, Skin: Taz scale 10, high risk, redness on Left hip per blood and plasma laboratory assistant. Pls refer to computer lab para professional's notes yesterday for further details. GI: Pt had 190 ml stool output this morning per blood and plasma laboratory assistant. PES: Partially resolved: Increased nutrient needs r/t current chronic medical condition aeb intubated, sedated, NPO. Altered nutrition related lab values r/t current/chronic medical condition aeb hyperglycemia, hyponatremia, hyperchloremia, elev. renal labs, HbA1c, hypocalcemia Will continue to monitor NPO status, PN tolerance, skin status, pertinent labs and weight trend. F/u in 2 to 3 days. Rec.: 1.) If still NPO, continue PN support that meets at least 75% of est nutrient needs. 2.) Advance gradually to oral diet (per ST's diet texture recommendation) or consider to resume EN support with formula choice of Vital High Protein @ 75 ml/hr goal rate as tolerated when medically appropriate. 3.) Refer to CDE/RD for further nutrition education and weight monitoring upon discharged. 4.) Continue current plan of care.
--- NOTE | 2018-05-07 13:05 | NUR ---
TEMP 101.5,DR. CHRISTIAN INFORMED,RECEIVED ORDER TO DISCONTIUE TRIPLE LUMEN CATHETER AND SEND TIP FOR CULTURE,ICE PACKS APPLIED TO COOL OFF.
[2018-05-07] MEDS ORDERED: KETOROLAC TROMETH 30 MG/ML 1ML VIAL IV PRN (14:00)
--- NOTE | 2018-05-07 14:45 | NUR ---
TEMP RE CHECKED 99.3
--- NOTE | 2018-05-07 16:35 | NUR ---
NAHEED FROM NAHEED ROOM AND BOARD HERE TO SEE PATIENT,NAHEED STATED WAS SENT BY [facility] TO COME AND ASSESSED PATIENT,PER NAHEED POSSIBLE ACCEPTING PATIENT ONCE DISCHARGE WITH HOSPICE.
[2018-05-07 17:11] VITALS: BP 142/75
--- NOTE | 2018-05-07 18:00 | NUR ---
PATIENT SUCTIONED Q 1 HOUR AND TURNED Q 2 HOUR.THROUGHOUT SHIFT
--- NOTE | 2018-05-07 18:00 | NUR ---
TRIPLE LUMEN CATH DISCONTINUED,CATHETER TIP SENT TO LAB FOR CULTURE
--- NOTE | 2018-05-07 18:24 | NUR ---
Respiratory note: PT ON NC2L. BS RHONCHI T/O, NTS PERFORMED AND RECIEVED MODERATE AMOUNT OF CLR/TANISH SECRETIONS. SPO2 97%. PT OFELIA NTS WELL.
--- NOTE | 2018-05-07 19:20 | NUR ---
REPOT GIVEN TO GRETTA HYDE RN FOR CONTINUATION OF CARE.
--- NOTE | 2018-05-07 19:30 | NUR ---
Opening Shift Note Assumed care of patient, only responds to shaking to arouse or painful stimuli. Non verbal. Dependent. Rectal tube in place. Car in place draining dark yeny urine. PICC line to right upper arm, II lumen clean dry and intact. Dressing changed on 05/06/18. Continues to produce large amount of thick yellowish pink secretions. Suctioning patient often. Hard time coughing up secretions. Sounds very gurgly.Turning q2 and using pillows to pad bony prominences. Optifoam on coccyx. will continue to monitor for changes Q1hr and PRN.
[2018-05-07] MEDS ORDERED: TPN PER PHARMACY IV NR ×10 (20:00)
[2018-05-07 22:00] VITALS: BP 140/85
[2018-05-08] MEDS: InsuLIN REG 1unit/0.01ml Soln (100units/ml) SC SCH ×3 (00:25→12:38)
[2018-05-08] MEDS: ACCU-CHEK COMFORT CURVE STRIP VI SCH ×3 (00:25→12:39)
--- NOTE | 2018-05-08 00:25 | NUR ---
Respiratory note: TX GIVEN, TOLERATED WELL. PT NTS'D FOR MODERATE AMT OF THICK WHITE/BEAL SECRETIONS. TOLERATED WELL, NO TRAUMA NOTED. PT RESTING COMFORTABLY ON 2L N/C.
[2018-05-08] MEDS: ACETYLCYSTEINE 10 %(100MG/ML) SOL 4ML NEB SCH ×4 (00:40→18:06)
[2018-05-08] MEDS: ALBUTEROL SULF 2.5 MG/0.5ML(0.5%) NEB SOLN NEB SCH ×4 (00:40→18:06)
[2018-05-08 05:00] VITALS: BP 139/71
[2018-05-08 05:39] LABS: Albumin 1.9 g/dL (3.4-5.0); Calcium 8.4 mg/dL (8.5-10.1); Magnesium 2.4 mg/dL (1.6-2.6); Potassium 4.7 mmol/L (3.5-5.1)
[2018-05-08 05:42] LABS: BUN/Creatinine Ratio 53.7; Bilirubin, Total 0.4 mg/dL (0.2-1.0); Phosphorus 3.8 mg/dL (2.5-4.90); Total Protein 5.9 g/dL (6.4-8.2)
[2018-05-08] MEDS: NYSTATIN (MOUTH-THROAT) 500,000 UNITS/5 ML SUSP MT SCH ×2 (06:00→12:00)
--- NOTE | 2018-05-08 06:20 | NUR ---
NTS PATIENT POST MED NEB TX. BS ARE COARSE RHONCHI, PT UNABLE TO COUGH UP SECRETIONS. SX LARGE AMOUNTS OF THICK YELLOW SECRETION WITH SOME BLOOD THROUGH LEFT NARE. UNABLE TO SX RIGHT NARE. SPO2 94%, HR 116. PT OFELIA. WELL. WILL CONTINUE TO MONITOR PT.
--- NOTE | 2018-05-08 06:51 | NUR ---
Suctioned through out night. Poor cough reflex. Mild temp of 99.9. using cooling measures do to not able to swallow. No distress noted. Bed low, head of bed @60 degrees elevated so not to aspirate her secretions. monitoring q1 hour
--- NOTE | 2018-05-08 08:00 | NUR ---
Opening Shift Note Assumed care of patient, sleeping and difficult to arouse. Responds to pain stimulus only but does not open eyes. No S/S of distress/SOB or pain. This nurse did oral suctioning with patient; she did not respond during this, but appeared to tolerate well. No sign of pain or grimacing. Will continue to monitor for changes Q1hr and PRN.
[2018-05-08 09:00] VITALS: BP 163/78
[2018-05-08] MEDS: DOXYCYCLINE 100MG/250ML 250 ML IV SCH (09:36)
[2018-05-08] MEDS: SODIUM CHLOR 0.9% PF (SALINE LOCK) 10ML VIAL/SYR IV SCH (09:36)
[2018-05-08] MEDS: PANTOPRAZOLE 40 MG/10 ML VIAL IV SCH (09:36)
[2018-05-08] MEDS: CHLORHEXIDINE 0.12% ORAL rinse 473ML MT SCH (11:47)
--- NOTE | 2018-05-08 12:15 | NUR ---
NTS PATIENT POST MED NEB TX. BS ARE COARSE RHONCHI, PT UNABLE TO COUGH UP SECRETIONS. SX LARGE AMOUNTS OF THICK YELLOW SECRETION WITH SOME BLOOD THROUGH LEFT AND RIGHT NARE. SPO2 97%, HR 108. PT OFELIA. WELL. WILL CONTINUE TO MONITOR PT.
[2018-05-08 13:00] VITALS: BP 138/73
--- NOTE | 2018-05-08 16:30 | NUR ---
PATIENT TRANSPORT PATIENT TO BE DISCHARGED AT 1730. HOSPICE NURSE, ALISA, WAS HERE THIS AFTERNOON PATIENT WAS ORIGINALLY GOING TO BE DISCHARGED AT 1330. SHE SAID DME WAS ON ITS WAY TO THE FACILITY WHERE SHE WILL BE GOING. PICC WAS REMOVED EARLY AFTERNOON PER MD. RECTAL TUBE WAS REMOVED EARLY AFTERNOON PER MD. GARCIA CATHETER WAS LEFT IN PLACE PER MD. THIS NURSE HAS BEEN CONSISTENTLY PERFORMING ORAL SUCTIONING THROUGHOUT THE DAY PATIENT IS UNABLE TO SWALLOW SECRETIONS. PATIENT WAS BRIEFLY ALERT (EYES OPEN) THIS AFTERNOON, BUT REMAINED NON VERBAL.
[2018-05-08 16:48] VITALS: BP 117/64
--- NOTE | 2018-05-08 18:32 | NUR ---
DISCHARGE/TRANSPORT PATIENT LEFT THE FACILITY AT 1832 VIA STRETCHER. ALL DISCHARGE PAPERWORK AND BELONGINGS GIVEN TO TRANSPORT PERSONNEL. PATIENT OPENED HER EYES BUT REMAINED NON VERBAL.
[2018-05-08] MEDS ORDERED: TPN PER PHARMACY IV NR ×10 (20:00)
== END 2018-05-08 19:09 | disposition hospice, home (50) | DRG 870 ==
LOC: ER 10:02 → OVERFLOW 14:02 → ICU WEST 04-20 05:37 → TELE-WESTW 04-28 03:04
PROVIDERS: ADMIT Internal Medicine; ATTEND Internal Medicine
PROC: 5A1955Z Respiratory Ventilation, Greater than 96 Consecutive Hours (ICD-10-PCS; principal; 2018-04-18)
PROC: 0BH17EZ Insertion of Endotracheal Airway into Trachea, Via Natural or Artificial Opening (ICD-10-PCS; 2018-04-18)
PROC: 02HV33Z Insertion of Infusion Device into Superior Vena Cava, Percutaneous Approach (ICD-10-PCS; 2018-04-18)
PROC: 02HV33Z Insertion of Infusion Device into Superior Vena Cava, Percutaneous Approach (ICD-10-PCS; 2018-04-29)
DX: A41.01 Sepsis due to Methicillin susceptible Staphylococcus aureus (principal); J69.0 Pneumonitis due to inhalation of food and vomit; G93.41 Metabolic encephalopathy; E43 Unspecified severe protein-calorie malnutrition; J15.211 Pneumonia due to Methicillin susceptible Staphylococcus aureus; N17.0 Acute kidney failure with tubular necrosis; I50.33 Acute on chronic diastolic (congestive) heart failure; J96.21 Acute and chronic respiratory failure with hypoxia; E87.0 Hyperosmolality and hypernatremia; I13.0 Hypertensive heart and chronic kidney disease with heart failure and stage 1 through stage 4 chronic kidney disease, or unspecified chronic kidney disease; N18.4 Chronic kidney disease, stage 4 (severe); E87.1 Hypo-osmolality and hyponatremia; E11.65 Type 2 diabetes mellitus with hyperglycemia; K80.20 Calculus of gallbladder without cholecystitis without obstruction; K57.90 Diverticulosis of intestine, part unspecified, without perforation or abscess without bleeding; M19.90 Unspecified osteoarthritis, unspecified site; I48.91 Unspecified atrial fibrillation; F31.9 Bipolar disorder, unspecified; E03.9 Hypothyroidism, unspecified; D64.9 Anemia, unspecified; N27.1 Small kidney, bilateral; F20.9 Schizophrenia, unspecified; F17.200 Nicotine dependence, unspecified, uncomplicated; E11.21 Type 2 diabetes mellitus with diabetic nephropathy; E11.22 Type 2 diabetes mellitus with diabetic chronic kidney disease; E86.0 Dehydration; E87.6 Hypokalemia; Z59.0 Homelessness; Z91.19 Patient's noncompliance with other medical treatment and regimen; Z68.28 Body mass index [BMI] 28.0-28.9, adult
CPT/HCPCS: 31500; 31720; 36415; 36556; 36569; 36600; 51702; 70450; 71045; 71250; 74176; 76775; 80048; 80053; 80061; 80202; 81001; 82040; 82150; 82550; 82805; 82962; 83036; 83605; 83690; 83735; 83880; 84100; 84443; 84478; 84484; 84550; 85007; 85025; 85027; 85610; 85652; 85730; 86141; 87040; 87070; 87077; 87081; 87086; 87147; 87186; 87205; 87493; 87804; 92610; 93005; 93306; 94002; 94003; 94640; 94660; 95819; 96365; 96366; 96368; 96375; 97110; 97163; 97530; 99291; A6257; C9113; G0378; J1450; J1815; J1956; J2250; J2543; J3480; J3490; J7060